=== PATIENT | male | born 1960 ===

== ENCOUNTER 2023-01-29 08:45 | Outpatient (AMB) | payer MEDICARE, SELFPAY ==
--- NOTE | 2023-01-29 09:11 | MHC.PC.OV ---
Vital Signs 01/29/23 09:14 Height 5 ft 11 in Weight 191 lb BMI 26.6 BP 120/66 Blood Pressure Location Lt brachial Position Sitting Intake Visit Reasons: Est care Intake Note: Pt is here today as a New Patient to est care Allergies No Known Allergies Allergy (Verified 02/03/23 16:40) Medication List - Last Reconciled 02/03/23 by ISAI Chavarria atorvastatin 40 mg PO DAILY empagliflozin (Jardiance) 10 mg PO DAILY folic acid 1 mg PO DAILY metoprolol tartrate 50 mg PO BID pantoprazole 40 mg PO DAILY sacubitril-valsartan 24-26 mg (Entresto) 1 tab PO BID Tobacco use date assessed: 01/29/23 HPI HPI Comments History of Present Illness Details Patient is a 62-year-old male in today to establish care. Patient last had establish medical providers from the [facility]. He has a past medical history significant for congestive heart failure, major depression, hypertension, and diabetes type 2. He has a surgical history of pulmonary pleural effusion requiring thoracentesis. He has had 2 Moderna COVID-19 immunization shots. He states he would like to get the new COVID booster and will make an appointment to do so. He received the influenza immunization in office today. His A1c in office today is 6.3. His last colonoscopy he believes was around 6-7 years prior to this appointment, he will reach out to previous provider to have them send us information on his last colonoscopy, will schedule based on recommendation from lip cutter and scorer. At the appointment today he has a chief complaint of intermittent right knee pain. He states that when he tries to walk up stairs he notices a lot of cracking in his knee. States that it has gotten progressively worse over the past couple years. Occasionally uses [id number] Motrin with some relief. Denies having any tingling or numbness. He also states that he gets unilateral left-sided headache 1-2 times per week, which responds well to Motrin. Denies any vision changes. States that he has never had history of headaches before. [facility] Medical History (Updated 02/03/23 @ 16:44 by ISAI Chavarria) Congestive heart failure Hyperlipidemia Surgical History (Updated 01/29/23 @ 10:02 by Ervin A Susu, MEASUREMENT AND SENSING TECHNICIAN) History of thoracentesis Social History (Updated 01/28/23 @ 14:48 by Amber To CMA) Patient Tobacco Use Status: Former Tobacco user e-Cigarette/Vaping Use: Never Used service: No Current occupational status: retired Cognitive needs: No Hearing needs: No Vision needs: Yes Questionnaire PHQ-9 Over the last 2 weeks, how often have you been bothered by any of the following problems? 1. Little interest or pleasure in doing things: several days 2. Feeling down, depressed, or hopeless: more than half the days 3. Trouble falling or staying asleep, or sleeping too much: more than half the days 4. Feeling tired or having little energy: not at all 5. Poor appetite or overeating: more than half the days 6. Feeling bad about yourself - or that you are a failure or have let yourself or your family down: several days 7. Trouble concentrating on things, such as reading the newspaper or watching television: not at all 8. Moving or speaking so slowly that other people could have noticed. Or the opposite - being so fidgety or restless that you have been moving around a lot more than usual: not at all 9. Thoughts that you would be better off or of hurting yourself in some way: not at all Total score: 8 Depression Screening Interpretation: Negative Depression Screening Done: Yes 73179 - PHQ-9 Billing: Yes Source: Developed by Drs. Romaine Ernst, Bibi Fitzpatrick, Baltazar Law and colleagues, with an educational alexandro from [email or web address]. Thrive Questionnaire Date Thrive assessed: 01/29/23 I am a: Patient What is your living situation today?: I have a steady place to live Within the past 12 months, did the food you bought not last and you didn't have the money to get more?: Often true Within the past 12 months, did you worry whether your food would run out before you got money to buy more?: Often true Do you have trouble paying for medicines?: Yes Do you have trouble getting transportation to medical appointments?: Yes Do you have trouble paying your heating and electricity bill?: Yes Do you have trouble taking care of your child, family member or friend?: No Do you have trouble with day-to-day activities such as bathing, preparing meals, shopping, managing finances, etc.?: Yes Are you currently unemployed and looking for a job?: No Are you interested in more education?: No AUDIT C Alcohol Use Questionnaire (AUDIT-C) 1. How often do you have a drink containing alcohol?: Never Total Score: 0 ROLANDO-7 AMB Questionnaire ROLANDO-7 Date ROLANDO - 7 assessed: 01/29/23 Feeling nervous, anxious, or on edge: 2 = More than half the days Not being able to stop or control worryin = Not at all Worrying too much about different things: 1 = Several days Trouble relaxin = Not at all Being so restless that it is hard to sit still: 0 = Not at all Becoming easily annoyed or irritable: 1 = Several days Feeling afraid as if something awful might happen: 2 = More than half the days Total ROLANDO-7 score (0-4 normal; 5-9 mild; 10-14 moderate; 15-21 severe): 6 Source: Developed by Drs. Romaine Ernst, Bibi Fitzpatrick, Baltazar Law and colleagues, with an educational alexandro from [email or web address]. ROLANDO-7 Assessment Billing ROLANDO-7 Assessment Tool: ROLANDO-7 Assessment 94408 Review of Systems Const All systems reviewed & are unremarkable except as noted in HPI and below Reports headache(s) Eyes Denies blurry vision and Denies change in vision ENT Denies dizziness, Denies otalgia, Denies facial pain and Reports headache(s) Card Denies chest pain and Denies dyspnea on exertion Resp Denies cough, Denies dyspnea on exertion and Denies wheezing GI Reports heartburn, Denies diarrhea, Denies nausea and Denies vomiting Musc Reports as per HPI and Denies tingling Neuro Denies dizziness, Reports headache(s) and Denies tingling Aller/Immun Denies wheezing Physical exam (Primary Care) Vital Signs: Last Vital Signs BP 120/66 01/29/23 09:14 Care Plan Goal for BP management: Blood pressure is 120/66, pulse is 66, O2 sat 99%. Vital signs stable BMI result Body Mass Index 26.6 Tobacco/Smoking Status: Tobacco use Status Tobacco use date assessed 01/29/23 01/29/23 09:33 Patient Tobacco Use Status Former Tobacco user 01/29/23 09:12 e-Cigarette/Vaping Use Never Used 01/29/23 09:33 PHQ-9: PHQ-9 Score PHQ-9: Total score 8 02/03/23 16:39 Depression Screening Interpretation: Negative Thrive Assessment: Date of Thrive Assessment Date Thrive assessed 01/29/23 01/29/23 10:08 Const Other: Appearance: Alert.? Oriented X3.? No acute distress.? Head: Normocephalic, atraumatic, no step-offs or deformities Eyes: Pupils equal, round and reactive to light.? ENT: Pharynx normal.?TM intact and pearly rose. Septum midline. Neck: Normal inspection.? Neck supple.? CVS: Normal heart rate and rhythm.? Pulses normal.?S1 and S2. Respiratory: No respiratory distress.? Breath sounds normal.? Abdomen: Soft and nontender.?Bowel sounds active. Skin: Skin warm and dry.? Normal skin color.? Normal skin turgor.? Extremities: No lower extremity edema.? No calf ttp. 5/5 strength to bilateral upper and lower extremities. Patient has cracking and crepitus of the right knee. Full range of motion to flexion and extension. Back: No midline tenderness, no C-spine tenderness, full range of motion, no CVA tenderness bilaterally Neuro: Oriented X 3.? No motor deficit.? No sensory deficit. CN 2-12 intact General: cooperative and no acute distress Office Procedures Flu Questionnaire Does the patient have a severe egg allergy?: No Does the patient have severe life threatening allergies?: No Does the patient have a fever or illness today?: No Has the patient ever had Guillain-[place] Syndrome?: No Has the patient ever had any past reaction to a flu shot?: No Results AMB Hemoglobin A1c AMB Hemoglobin A1c 6.3 % Last Edit by Amber To CMA on 01/29/23 09:34 Immunizations flu vacc [id number] 6mos up(PF) 60 mcg(15 mcgx4)/0.5 mL IM syringe Performing Provider: ISAI Chavarria Performing Location: [facility] Administered by: Amber To CMA on 01/29/23 10:05 Dose Route Admin Location Dispensed Lot Number Expiration Date NDC [place] 0.5 mL IM Left Deltoid 0.5 mL [id number] 08/24/23 96129-595-23 [employer] VIS Given Date VIS Provided VIS Publication Date 01/29/23 Single Vaccine 20 Eligibility Eligibility Date Funding Source Not [facility] Eligible 01/29/23 Private Results Reviewed Results Reviewed: Laboratory Last Values Hgb A1c (Clinic) 6.3 % (4.0-6.0) H 01/29/23 09:33 Results reviewed with patient. Assessment and Plan Assessment & Plan (1) Diabetes type 2, controlled: Comment: Patient had A1c drawn in office. He should continue to watch his diet which he has been doing a good job of, and continue to take his medication as directed. He should continue to take blood sugar levels at home. He will receive a referral to Ophthalmology and Podiatry. Code(s): E11.9 - Type 2 diabetes mellitus without complications Qualifiers: Diabetes mellitus complication status: without complication Diabetes mellitus intermediate frame tender insulin use: without retirement use Qualified Code(s): E11.9 - Type 2 diabetes mellitus without complications (2) Frequent headaches: Comment: Patient has been educated to make sure he stays water. Due to the frequency of headache 3 to 4 times a week, will order CT scan. Patient has been educated on signs of worsening symptoms, when to report back to the office or when to present to the emergency room. Code(s): R51.9 - Headache, unspecified (3) Right knee pain: Comment: Patient has cracking and crepitus on flexion-extension. In addition he report intermittent right knee pain, especially walking up and down stairs. Will order x-ray of right knee. Will follow-up patient with results. Patient has been educated that he can use supportive device over his knee, and to give it rest. Code(s): M25.561 - Pain in right knee Qualifiers: Chronicity: acute Qualified Code(s): M25.561 - Pain in right knee Orders: Orders CT head/brain wo IV con 01/29/23 R51.9 - Headache, unspecified Comprehensive Met. Panel 01/30/23 E11.9 - Type 2 diabetes mellitus without complications Complete Blood Count Auto Diff 01/30/23 E11.9 - Type 2 diabetes mellitus without complications Microalbumin 24 hr Urine 02/05/23 E11.9 - Type 2 diabetes mellitus without complications AMB Hemoglobin A1c 01/29/23 Z13.9 - Encounter for screening, unspecified Influenza [id number] Immunization 01/29/23 Z23 - Encounter for immunization XR knee LT 2V 01/29/23 M25.561 - Pain in right knee Lipid Panel 01/30/23 E78.5 - Hyperlipidemia, unspecified PSA,Total (Free>4and<10) 01/30/23 E78.5 - Hyperlipidemia, unspecified TSH reflex Free T4 01/30/23 E11.9 - Type 2 diabetes mellitus without complications UA CC w/rflx Micro + Cult 01/30/23 E11.9 - Type 2 diabetes mellitus without complications Referrals Cardiology Referral I50.9 - Heart failure, unspecified Podiatry Referral E11.9 - Type 2 diabetes mellitus without complications Ophthalmology Referral E11.9 - Type 2 diabetes mellitus without complications Coding Level of Care Code New Pt Level 4 (68480) Diagnoses Controlled type 2 diabetes mellitus without complication, without long-term current use of insulin E11.9 Diabetes mellitus complication status: without complication Diabetes mellitus retirement insulin use: without retirement use Frequent headaches R51.9 Acute pain of right knee M25.561 Chronicity: acute Additional Codes ROLANDO-7 Assessment Billing - ROLANDO-7 Assessment Tool: ROLANDO-7 Assessment 21796 ([id number]) Time Spent (min) 30
[2023-01-29 09:14] VITALS: BP 120/66; BMI 26.6
== END 2023-01-29 10:45 | disposition home or self-care (01) ==
PROVIDERS: PCP Nurse Practitioner Primary Care; Visit Provider Nurse Practitioner Primary Care
DX: Z23 Encounter for immunization (principal); E11.9 Type 2 diabetes mellitus without complications
CPT/HCPCS: 83036; 90471; 90686; 99204

== ENCOUNTER 2023-01-30 08:10 | Outpatient (REF) | payer MEDICARE, SELFPAY ==
[2023-01-30 11:20] LABS: MANUAL DIFF FLAG NO
[2023-01-30 11:29] LABS: Appearance Urine Clear; Color Urine Yellow; Glucose Urine UA >=1000 mg/dL (Negative); Leukocyte Esterase Urine Negative (Negative); Nitrite Urine Negative (Negative); Specific Gravity - Urine >= 1.030 (1.005-1.025); UMIC TRIGGER UACC YES; Urine Blood Negative (Negative); Urine Ketones Negative (Negative); Urine Protein Negative (Neg-Trace)
[2023-01-30 11:33] LABS: Bacteria Urine None Seen (None Seen); Hyaline Casts Urine 0-2 /LPF (0-2); RBC Urine 0-2 /HPF (0-2); Squamous Epithelial Cell Urine 0-2 /HPF (0-2); WBC Urine 0-5 /HPF (0-5)
[2023-01-30 11:41] LABS: Basophils Percent Auto 0.5 % (0-2); Eosinophils Absolute Auto 0.1 X10*3/uL (0.0-0.4); Eosinophils Percent Auto 1.8 % (0-4); Hemoglobin 14.6 g/dl (14.0-18.0); Imm Gran Abs Auto 0.01 X10*3/uL (0.00-0.03); Imm Gran Pct Auto 0.3 % (0.0-0.4); Lymphocytes Absolute Auto 1.5 X10*3/uL (1.2-4.9); Lymphocytes Percent Auto 37.8 % (20-40); Mean Corpuscular HGB Conc 31.7 g/dl (31.0-36.0); Mean Corpuscular Hemoglobin 30.3 pg (27.0-33.0); Mean Corpuscular Volume 95.4 fL (80.0-98.0); Mean Platelet Volume 10.1 fL (9.4-12.4); Monocytes Absolute Auto 0.3 X10*3/uL (0.1-1.2); Neutrophils Percent Auto 52.6 % (45-73); Platelet Count 235 X10*3/uL (160-400); Red Blood Count 4.82 X10*6/uL (4.60-5.80); Red Cell Distribution Width 13.3 % (11.0-16.0); White Blood Count 3.8 X10*3/uL (4.8-10.8)
[2023-01-30 12:01] LABS: Alanine Aminotransferase 11 U/L (0-40); Albumin Level 4.2 g/dL (3.5-5.0); Alkaline Phosphatase 77 U/L (39-117); Anion Gap 10 (12-20); Aspartate Amino Transferase 15 U/L (5-37); Bilirubin Total 0.6 mg/dL (0.0-1.0); Blood Urea Nitrogen 12 mg/dL (9-16); Calcium 9.4 mg/dL (8.4-10.2); Carbon Dioxide 31 mmol/L (22-29); Chloride 105 mmol/L (96-108); Cholesterol 119 mg/dL (<200); Estimated Glomerular Filt Rate > 60; Glucose Random 122 mg/dL (60-115); HDL Cholesterol 49 mg/dL (>40); LDL Cholesterol Calculated 51 mg/dL (<100); Potassium 4.2 mmol/L (3.3-5.1); Sodium 142 mmol/L (135-145); Total Protein 6.8 g/dL (6.5-8.0); Triglycerides 98 mg/dL (<150)
[2023-01-30 12:06] LABS: TSH reflex Free T4 1.26 uIU/mL (0.32-4.0)
== END 2023-01-30 08:11 | disposition home or self-care (01) ==
LOC: HO.HMGCLDS 08:10
PROVIDERS: PCP Nurse Practitioner Primary Care; Visit Provider Nurse Practitioner Primary Care
DX: E11.9 Type 2 diabetes mellitus without complications (principal); E78.5 Hyperlipidemia, unspecified; Z12.5 Encounter for screening for malignant neoplasm of prostate
CPT/HCPCS: 36415; 80053; 80061; 81001; 84153; 84443; 85025

== ENCOUNTER 2023-02-05 07:30 | Outpatient (REF) | payer MEDICARE, SELFPAY ==
[2023-02-05 12:16] LABS: Total Volume 24 Hour Urine 2900 mL
[2023-02-05 13:05] LABS: Microalbumin 24 Hour Urine < 5.0 mg/L
== END 2023-02-05 07:31 | disposition home or self-care (01) ==
LOC: HO.HMGCLNP 07:30
PROVIDERS: PCP Nurse Practitioner Primary Care; Visit Provider Nurse Practitioner Primary Care
DX: E11.9 Type 2 diabetes mellitus without complications (principal)
CPT/HCPCS: 82043

== ENCOUNTER 2023-02-14 06:26 | Outpatient (REF) | payer MEDICARE, MEDICAID, SELFPAY ==
--- NOTE | ~2023-02-14 | CT_ITS ---
EXAMINATION: CT HEAD WITHOUT CONTRAST CLINICAL INFORMATION: Headache. COMPARISON: None. TECHNIQUE: Contiguous axial imaging was performed from the skullbase to vertex without intravenous administration of contrast. This CT examination was performed using dose optimization techniques as appropriate, variously including the following: *Automated exposure control *Adjustment of mA and/or kV according to patient size (this includes techniques or standardized protocols for targeted exams where dose is matched to indication/reason for exam; i.e. extremities or head) *Use of iterative reconstruction technique DLP: 824 mGy-cm. FINDINGS: There is no evidence of acute intracranial hemorrhage or territorial infarction. No abnormal mass effect or midline shift is seen. Ryder to white matter differentiation is well preserved. No extra-axial fluid collections are identified. The ventricles are normal. No abnormal attenuation is visible in the brain parenchyma. The osseous structures and soft tissues are normal. There is a mild amount of fluid in the dependent right mastoid air cells. The right mastoid bone is also less well pneumatized compared to the left side. The left mastoid air cells and visualized portions of the paranasal sinuses are well aerated. Small subchondral cyst noted in the condylar head of the left the temporomandibular joint. CT/CT head/brain wo IV con IMPRESSION: No acute intracranial pathology. Normal CT scan of the head. Mild right mastoid effusion.
== END 2023-02-14 06:27 | disposition home or self-care (01) ==
LOC: HO.CT 06:26
PROVIDERS: PCP Nurse Practitioner Primary Care; Visit Provider Nurse Practitioner Primary Care
DX: R51.9 Headache, unspecified (principal); M25.561 Pain in right knee
CPT/HCPCS: 70450; 73560

== ENCOUNTER 2023-04-29 07:38 | Outpatient (AMB) | payer OTHER, SELFPAY ==
--- NOTE | 2023-04-29 08:28 | MHC.OFFVIS ---
Intake Vital Signs 04/29/23 08:30 Height 5 ft 11 in Weight 196 lb 3.382 oz BMI 27.4 BP 136/76 Blood Pressure Location Lt brachial Position Sitting Pulse 63 Intake Visit Reasons: [employer]/Susu/Heart failure Intake Note: NPV w/ EKG Director Of Revenue Required: Yes Director Of Revenue Language: Teletypist Name: Sammy [id number] Accompanied by: Self / Same As Patient Allergies No Known Allergies Allergy (Verified 04/29/23 08:30) Medication List - Last Reconciled 04/29/23 by Aramis Pedraza MD atorvastatin 40 mg PO DAILY empagliflozin (Jardiance) 10 mg PO DAILY folic acid 1 mg PO DAILY metoprolol tartrate 50 mg PO BID pantoprazole 40 mg PO DAILY sacubitril-valsartan 24-26 mg (Entresto) 1 tab PO BID HPI HPI Comments History of Present Illness Details This is a cardiology consultation regarding congestive heart failure. It appears that patient might have seen a special agent in charge in [place] but details not entirely clear. He does not know too much. It seems that he has had a pleural effusion tapped many years ago. Otherwise, he denies any history of coronary disease myocardial infarction or PCI in the past. He states he has had a lot of alcohol in the past but not recently. At the current time, denies any symptoms like exertional chest pains or exertional shortness of breath. No significant leg swelling. [facility] Medical History (Updated 02/03/23 @ 16:44 by ISAI Chavarria) Congestive heart failure Hyperlipidemia Surgical History History of thoracentesis Family History (Updated 04/29/23 @ 08:31 by Wendi Cloud) Mother Heart problem Social History (Updated 01/28/23 @ 14:48 by Amber To [facility]) Patient Tobacco Use Status: Former Tobacco user e-Cigarette/Vaping Use: Never Used service: No Current occupational status: retired Cognitive needs: No Hearing needs: No Vision needs: Yes Review of Systems Const Denies chills, Denies daytime sleepiness, Denies fatigue, Denies fever(s), Denies frequent falls, Denies night sweats, Denies snoring, Denies weakness, Denies weight gain and Denies weight loss Eyes Denies loss of vision ENT Denies dizziness and Denies hearing loss Card Denies chest pain, Denies chest pain with activity, Denies syncope, Denies rapid heart rate, Denies edema, Denies claudication, Denies leg edema, Denies lightheadedness, Denies palpitations, Denies dyspnea, Denies dyspnea on exertion and Denies orthopnea Resp Denies cough, Denies excessive phlegm production, Denies dyspnea, Denies dyspnea on exertion, Denies snoring and Denies wheezing GI Denies abdominal pain, Denies hematochezia, Denies change in bowel habits, Denies change in stool character, Denies heartburn, Denies nausea and Denies vomiting Denies hematuria, Denies dysuria and Denies urinary frequency Musc Denies arthralgias, Denies muscle weakness, Denies numbness and Denies tingling Skin/Breast Denies nail changes and Denies rash Neuro Denies Abnormal speech present, Denies dizziness, Denies syncope, Denies frequent falls, Denies loss of vision, Denies memory loss, Denies numbness, Denies tingling and Denies weakness Psych Denies depression and Denies memory loss Endo Denies fatigue and Denies palpitations Aller/Immun Denies wheezing Physical Exam Vital Signs: Last Vital Signs Pulse 63 04/29/23 08:30 BP 136/76 04/29/23 08:30 BMI result Body Mass Index 27.4 Const General: comfortable and no acute distress Orientation/consciousness: patient oriented x3 HEENT Other: Unremarkable Head: Yes normal to inspection Neck Neck: Yes normal visual inspection Chest Chest palpation & inspection: normal inspection of the chest Resp Auscultation: clear to auscultation bilaterally Cardio Palpation: normal PMI Heart sounds: S1 normal heart sound present, S2 normal heart sound present, no gallops, no murmurs and no rubs GI Palpation (GI): Soft to palpation Back/Spine/Pelvis Other: unremarkable Skin General skin exam: no rashes or lesions noted Neuro General: patient oriented x3 Speech: No Abnormal speech present Extrem General: Yes normal to inspection Psych Mental Status: mental status grossly normal Office Procedures EKG Details: EKG with sinus rhythm at 63/Min; can not exclude old septal infarct; PVCs. [id number], Complete Assessment & Plan Assessment & Plan (1) Congestive heart failure: Code(s): I50.9 - Heart failure, unspecified Plan History of congestive heart failure but no further information. He seems to be on reasonable regimen including beta-blockers, Entresto, Jardiance. Will get an echocardiogram for cardiac function assessment. Need to get records from [place] from prior cardiac testing/outpatient visits. Follow-up after the above. Orders: Orders CA echo transthoracic complete Today I50.9 - Heart failure, unspecified Coding Level of Care Code New Pt Level 3 (51270) Diagnoses Congestive heart failure I50.9 CPT Codes EKG - CPT: 78940-[id number], Complete ([id number])
[2023-04-29 08:30] VITALS: BP 136/76; PULSE 63; BMI 27.4
== END 2023-04-29 09:02 | disposition home or self-care (01) ==
PROVIDERS: PCP Nurse Practitioner Primary Care; Visit Provider Internal Medicine
DX: I50.9 Heart failure, unspecified (principal)
CPT/HCPCS: 93010; 99203

== ENCOUNTER → 2023-04-29 07:38 | Outpatient (BNVA) | payer OTHER, SELFPAY | PROVIDERS: PCP Nurse Practitioner Primary Care; Visit Provider Internal Medicine | DX: I50.9 Heart failure, unspecified (principal) | CPT/HCPCS: 93005; 99202 ==

== ENCOUNTER → 2023-05-27 07:44 | Outpatient (REF) | payer OTHER, SELFPAY ==
--- NOTE | 2023-05-27 07:46 | CA_ITS ---
Transthoracic Echocardiogram Patient (Last, First, Middle): D[address]rell [address], Gender: Male Date of : 1960 Age: 63 Procedure Date: 05/27/2023 Procedure Type: Transthoracic Echocardiogram Location: OP Height: 180.34 cm Weight: 85.28 kg BSA: 2.05 m2 Heart Rate: bpm BP: 128 / 74 mmHg Stoneworker: RACHNA Referring MD: Aramis Pedraza MD Clinical Research Nurse Coordinator: Te Linares MD Symptoms: I50.9 - Heart failure, unspecified Study Quality: Adequate ECG Rhythm: Sinus Conclusions: - 1. Low normal LV ejection fraction 50-55% with impaired relaxation filling pattern with underlying regional wall motion abnormality consistent with coronary artery disease 2. Normal cardiac valvular Doppler 3. Normal RV systolic pressure 4. Mildly dilated ascending aorta 5. No gross pericardial effusion Findings Left Ventricle Mildly increased left ventricular cavity size. There is normal left ventricular wall thickness. The left ventricular systolic function is low normal. The visually estimated ejection fraction is between 50-55%. Spectral Doppler is indicative of an impaired relaxation filling pattern. E/E prime ratio is between 8 and 15 consistent with indeterminate filling pressures. Wall Motion Rest Echo Findings The mid inferior, mid inferoseptal, and basal inferolateral segments are hypokinetic. The basal inferior and basal inferoseptal segments are akinetic. All other scored wall segments showed normal motion. Right Ventricle Normal right ventricular cavity size and systolic function. Atria The left atrium is normal in size. The right atrium is normal in size. Aortic Valve Normal aortic valve structure and function. There is no aortic valve stenosis. There is no aortic valve regurgitation. Mitral Valve Normal mitral valve structure and function. There is trace mitral valve regurgitation. There is no mitral valve stenosis. Pulmonic Valve There is trace pulmonic valve regurgitation. Tricuspid Valve Normal tricuspid valve structure. There is trace tricuspid valve regurgitation. The right ventricular systolic pressure is normal. Normal right atrial pressure. There is no evidence of pulmonary hypertension. Great Vessels The pulmonary artery was not well visualized. There is mild dilatation of the ascending aorta measuring 3.70 cm. Venous The inferior vena cava is normal in size and collapses greater than 50% with inspiration. Pericardium/Pleural There is no evidence of pericardial effusion. Prior Study Comparison No prior study available for comparison. Measurements 2D Linear Measurements IVSd: 0.84 0.6-0.9/0.6-1.0 cm LVIDd: 5.69 3.9-5.3/4.2-5.9 cm LVIDd Index: 2.78 2.4-3.2/2.2-3.1 cm/m2 LVIDs: 4.21 2.0-3.6 cm LVPWd: 0.71 0.7-1.1 cm LA Diam: 3.00 2.7-3.8/3.0-4.0 cm LAIDs Index: 1.46 1.5-2.3 cm/m2 LV Mass: 202.93 67-162/88-224 g LV Mass Index: 98.99 43-95/49-115 g/m2 LVOT Diam: 2.50 3.0+(-)1.3 cm 2D Systolic Function EF 4C: 50.10 >55% EF 2C: 56.50 >55% EF BiP: 51.50 >55% Mitral Valve MV Pk E: 0.42 MV PK A: 0.39 MV Decel Time: 327.00 E/A: 1.10 E'Lateral: 8.59 E'Medial: 6.20 E/E' Med: 6.80 E/E' Lat: 4.90 PHT: 96.00 MVA PHT: 2.29 Decel [place]: 1.30 Aortic Valve AoV Pk Glenn: 0.92 AoV Mn Glenn: 0.67 AoV VTI: 0.22 AoV Pk Grad: 3.00 Aov Mn Grad: 2.00 JUDAH Cont.VTI: 3.57 LVOT LVOT Pk Glenn: 0.72 LVOT Mn Glenn: 0.45 LVOT VTI: 0.16 LVOT Pk Grad: 2.00 LVOT Mn Grad: 1.00 LVOT Diam: 2.50 LVOT Area: 4.91 Diastolic Function MV Pk E: 0.42 MV Pk A: 0.39 E/A: 1.10 E'Medial: 6.20 E/E' Med: 6.80 E' Laterial: 8.59 E/E' Lat: 4.90 Right Ventricle TAPSE (mm): 21.70 TVS' Glenn: 13.10 Tricuspid Valve TR Pk Glenn: 1.98 TR Pk Grad: 16.00 RA Press: 3.00 RVSP: 19.00 Great Vessels Aorta Sinus of Valsalva: 4.32 2.0-3.[address] [place]: 3.52 1.7-3.4 cm Ao Asc: 3.70 2.1-3.4 cm Updated in Other Vendor System with Status of Final Te Linares MD electronically signed on 05/28/2023 3:51:19 PM with status of Final
== END ==
LOC: HO.CARD 07:44
PROVIDERS: PCP Nurse Practitioner Family; Visit Provider Internal Medicine
DX: I50.9 Heart failure, unspecified (principal)
CPT/HCPCS: 93306

== ENCOUNTER → 2023-05-27 07:46 | Outpatient (BNV) | payer OTHER, SELFPAY | PROVIDERS: PCP Nurse Practitioner Family; Visit Provider Internal Medicine Cardiovascular Disease | DX: I50.22 Chronic systolic (congestive) heart failure (principal) | CPT/HCPCS: 93306 ==

== ENCOUNTER 2023-06-02 13:36 | Outpatient (AMB) | payer OTHER, SELFPAY ==
--- NOTE | 2023-06-02 13:50 | MHC.PC.OV ---
Vital Signs 06/02/23 13:51 Height 5 ft 11 in Weight 198 lb 2 oz BMI 27.6 BP 114/72 Blood Pressure Location Rt brachial Position Sitting Pulse 70 Pulse Source Pulse Oximeter Pulse Oximetry (%) 98 Oxygen Delivery Method Room Air Intake Visit Reasons: depression, insomnia Intake Note: Pt is here for insomnia and depression Allergies No Known Allergies Allergy (Verified 06/02/23 14:23) Medication List - Last Reconciled 06/02/23 by ISAI Chavarria atorvastatin 40 mg PO DAILY empagliflozin (Jardiance) 10 mg PO DAILY folic acid 1 mg PO DAILY metoprolol tartrate 50 mg PO BID pantoprazole 40 mg PO DAILY sacubitril-valsartan 24-26 mg (Entresto) 1 tab PO BID Tobacco use date assessed: 06/02/23 Dental Screening Dental Screen Date: 06/02/23 Did you have a dental visit in the last 12 months?: No Did you have a dental problem in the last 6 months where you did not have access to dental care?: No Was dental information given to patient?: Patient has dentist HPI HPI Comments History of Present Illness Details Patient is a 63-year-old male here for diabetic visit. Patient in office A1c is 6.8. Patient does not want to increase medication dosage at this time instead would like to try to improve diet and exercise. Patient given information to make appointment for podiatry in for Ophthalmology as he is due for those. Patient states he is having increasing anxiety insomnia over the past several months due to life stressors. He is interested in starting medication for this, will start him on hydroxyzine to be taken p.r.n. at night. Patient is also meeting with community navigator to assist in finding therapy and psychiatrist. Patient denies SI/HI. Patient has history of chronic GERD he has been taking pantoprazole sodium for this with mild effect. Patient has been educated on foods to avoid, to avoid eating at least 3 hours before dinner, to sleep with his head of his bed elevated. Patient denies blood in stools, constipation, or diarrhea. Will refer to GI due to increased bloating and chronic nature of patient's GERD symptoms with PPI use. Patient has complained of right foot pain over his 1st metatarsal joint, found to be bunion. Patient will be given diclofenac gel, has referral to Podiatry. Also been educated he can use inserts in his shoes to help with the pain. [facility] Medical History Congestive heart failure Hyperlipidemia Surgical History History of thoracentesis Family History Mother Heart problem Social History Housing: Apartment Patient Tobacco Use Status: Former Tobacco user e-Cigarette/Vaping Use: Never Used service: No Current occupational status: retired Cognitive needs: No Hearing needs: No Vision needs: Yes Questionnaire Thrive Questionnaire Date Thrive assessed: 01/29/23 ROLANDO-7 AMB Questionnaire ROLANDO-7 Date ROLANDO - 7 assessed: 06/02/23 Feeling nervous, anxious, or on edge: 2 = More than half the days Not being able to stop or control worryin = More than half the days Worrying too much about different things: 3 = Nearly every day Trouble relaxin = More than half the days Being so restless that it is hard to sit still: 2 = More than half the days Becoming easily annoyed or irritable: 2 = More than half the days Feeling afraid as if something awful might happen: 2 = More than half the days Total ROLANDO-7 score (0-4 normal; 5-9 mild; 10-14 moderate; 15-21 severe): 15 Source: Developed by Drs. Romaine Ernst, Bibi Fitzpatrick, Baltazar Law and colleagues, with an educational alexandro from [employer]. ROLANDO-7 Assessment Billing ROLANDO-7 Assessment Tool: ROLANDO-7 Assessment 05261 Review of Systems Const Details: Constitutional : No Weight loss, No Fever, No Chills, No Fatigue, No Malaise ENT/Mouth : No sore throat, No Rhinorrhea Eyes: No Eye Pain, No Swelling, No Redness Cardiovascular : No Chest Pain, No SOB, No Dyspnea on Exertion, No Orthopnea, No Edema, No Palpitations Respiratory : No Cough, No Sputum, No Wheezing Gastrointestinal : No Nausea, No Vomiting, No Diarrhea, No Constipation, No abdominal Pain, No Hematochezia, No Melena, Admits distention and Reflux. Genitourinary : No Dysuria, No Urinary Frequency, No Hematuria, Musculoskeletal : Admits right foot pain at first joint. Skin : No Skin Lesions, No rash Neuro : No Weakness, No Numbness, No Dizziness, No Headache Psych : Admits some Anxiety/Panic, No Depression, Denies SI/HI. Heme/Lymph: No Bruising, No Bleeding,No Lymphadenopathy Endocrine : No Polyuria, No Polydipsia All other systems reviewed and are negative Physical exam (Primary Care) Vital Signs: Last Vital Signs Pulse 70 06/02/23 13:51 BP 114/72 06/02/23 13:51 Pulse Ox 98 06/02/23 13:51 Oxygen Delivery Method Room Air 06/02/23 13:51 Care Plan Goal for BP management: Vital signs reviewed stable. BMI result Body Mass Index 27.6 Tobacco/Smoking Status: Tobacco use Status Tobacco use date assessed 06/02/23 06/02/23 13:56 Patient Tobacco Use Status Former Tobacco user 06/02/23 13:50 e-Cigarette/Vaping Use Never Used 06/02/23 13:50 Thrive Assessment: Date of Thrive Assessment Date Thrive assessed 01/29/23 06/02/23 13:50 Const Other: Appearance: Alert.? Oriented X3.? No acute distress.? Head: Normocephalic, atraumatic, Eyes: Pupils equal, round and reactive to light.? ENT: Pharynx normal.? Neck: Normal inspection.? Neck supple.? CVS: Normal heart rate and rhythm.? Pulses normal.? Respiratory: No respiratory distress.? Breath sounds normal.? Abdomen: +distention. +hyperactive bowel sounds. Skin: Skin warm and dry.? Normal skin color.? Normal skin turgor.? Extremities: +right foot bunion. Back: No midline tenderness, no C-spine tenderness, full range of motion, no CVA tenderness bilaterally Neuro: Oriented X 3.? No motor deficit.? No sensory deficit. CN 2-12 intact Results AMB Hemoglobin A1c AMB Hemoglobin A1c 6.8 % Last Edit by Conchita Valero CMA on 06/02/23 14:13 Results Reviewed Results Reviewed: Laboratory Last Values Hgb A1c (Clinic) 6.8 % (4.0-6.0) H 06/02/23 14:01 Assessment and Plan Assessment & Plan (1) Diabetes type 2, controlled: Comment: Patient had A1c drawn in office. He should continue to watch his diet which he has been doing a good job of, and continue to take his medication as directed. He should continue to take blood sugar levels at home. He will receive a referral to Ophthalmology and Podiatry. Code(s): E11.9 - Type 2 diabetes mellitus without complications Qualifiers: Diabetes mellitus terminal gauger supervisor insulin use: without skilled nursing use Diabetes mellitus complication status: without complication Qualified Code(s): E11.9 - Type 2 diabetes mellitus without complications (2) GERD (gastroesophageal reflux disease): Comment: Patient is getting mild effect from pantoprazole sodium. Patient is also having increased bloating. Will give simethicone, will also give patient referral to GI. Code(s): K21.9 - Gastro-esophageal reflux disease without esophagitis Qualifiers: Esophagitis presence: esophagitis presence not specified Qualified Code(s): K21.9 - Gastro-esophageal reflux disease without esophagitis (3) Bunion, right foot: Comment: Patient given diclofenac gel, also referral to Podiatry. Has been educated to use inserts for his feet Code(s): M21.611 - Bunion of right foot Plan: Follow-up in 3 month Plan Take your medications as prescribed. If you were prescribed antibiotics today, it is important that you take your medication to their entirety, do not skip any doses, do not finish them early. Follow-up with your primary care provider this week. Return to the emergency department with new or worsening symptoms. Such as fevers, chills, chest pain, shortness of breath, nausea, vomiting, dizziness, headache, vision changes, lethargy In case of emergency call 911 Orders: Orders AMB Hemoglobin A1c Today E11.9 - Type 2 diabetes mellitus without complications Referrals Gastroenterology Referral K21.9 - Gastro-esophageal reflux disease without esophagitis, R14.0 - Abdominal distension (gaseous) Medications: New blood pressure test kit-large As directed 1 ea 0RF diclofenac sodium 1% apply to single elbow, wrist or hand; for hand includes palm/fingers/back of hand 2 grams topical QID 100 grams 0RF hydroxyzine HCl 25 mg PO BEDTIME PRN 30 tabs 0RF anxiety blood-glucose meter (FreeStyle Lite Meter kit) As directed 1 ea 0RF blood sugar diagnostic (FreeStyle Lite Strips) As directed 100 ea 0RF lancets (FreeStyle Lancets) As directed 100 ea 0RF simethicone (Gas Relief (simethicone)) 180 mg PO DAILY PRN 30 caps 0RF abdominal distention Coding Level of Care Code Est Pt Level 4 (81249) Diagnoses Controlled type 2 diabetes mellitus without complication, without long-term current use of insulin E11.9 Diabetes mellitus terminal gauger supervisor insulin use: without terminal gauger supervisor use Diabetes mellitus complication status: without complication Gastroesophageal reflux disease, unspecified whether esophagitis present K21.9 Esophagitis presence: esophagitis presence not specified Bunion, right foot M21.611 Additional Codes ROLANDO-7 Assessment Billing - ROLANDO-7 Assessment Tool: ROLANDO-7 Assessment 71348 ([id number]) Time Spent (min) 32
[2023-06-02 13:51] VITALS: BP 114/72; PULSE 70; O2SAT 98; BMI 27.6
== END 2023-06-02 15:11 | disposition home or self-care (01) ==
PROVIDERS: PCP Nurse Practitioner Family; Visit Provider Nurse Practitioner Primary Care
DX: E11.9 Type 2 diabetes mellitus without complications (principal)
CPT/HCPCS: 83036; 99214

== ENCOUNTER 2023-07-10 10:37 | Outpatient (AMB) | payer OTHER, SELFPAY ==
--- NOTE | 2023-07-10 10:58 | MHC.PC.OV ---
Vital Signs 07/10/23 10:59 Height 5 ft 11 in Weight 195 lb BMI 27.2 BP 122/70 Blood Pressure Location Rt brachial Position Sitting Pulse 60 Pulse Source Pulse Oximeter Pulse Oximetry (%) 99 Intake Visit Reasons: follow up insomnia, depression Intake Note: pt is here for follow up on insomnia and depression Water Chemist Required: No Accompanied by: Self / Same As Patient Allergies metformin Adverse Reaction (Mild, Uncoded 07/10/23 11:26) Headache Medication List - Last Reconciled 07/10/23 by ISAI Chavarria atorvastatin 40 mg PO DAILY blood pressure test kit-large As directed blood sugar diagnostic (FreeStyle Lite Strips) Test blood sugar once a day blood-glucose meter (FreeStyle Lite Meter kit) As directed diclofenac sodium 1% 2 grams topical QID PRN empagliflozin (Jardiance) 10 mg PO DAILY folic acid 1 mg PO DAILY hydroxyzine HCl 25 mg PO BEDTIME PRN lancets (FreeStyle Lancets) Test blood sugar once a day metoprolol tartrate 50 mg PO BID pantoprazole 20 mg PO DAILY sacubitril-valsartan 24-26 mg (Entresto) 1 tab PO BID simethicone 180 mg PO DAILY PRN Tobacco use date assessed: 06/02/23 Dental Screening Dental Screen Date: 06/02/23 HPI HPI Comments History of Present Illness Details patient is a 63-year-old male in today for follow-up with anxiety and insomnia. At previous appointment he was started on hydroxyzine p.r.n. at night for the insomnia. He was also connected with community development specialist for therapy and psychiatry. He has his first appointment with therapy next week. Reports that he is getting sufficient sleep utilizing hydroxyzine prn. Patient will wait and see if therapy helps depressive symptoms during the day before he starts daily medication. Denies symptoms of SI/HI. [facility] Medical History Congestive heart failure Hyperlipidemia Surgical History History of thoracentesis Family History Mother Heart problem Social History Housing: Apartment Patient Tobacco Use Status: Former Tobacco user e-Cigarette/Vaping Use: Never Used service: No Current occupational status: retired Cognitive needs: No Hearing needs: No Vision needs: Yes Questionnaire PHQ-9 Over the last 2 weeks, how often have you been bothered by any of the following problems? 1. Little interest or pleasure in doing things: nearly every day 2. Feeling down, depressed, or hopeless: nearly every day 3. Trouble falling or staying asleep, or sleeping too much: nearly every day 4. Feeling tired or having little energy: nearly every day 5. Poor appetite or overeating: more than half the days 6. Feeling bad about yourself - or that you are a failure or have let yourself or your family down: not at all 7. Trouble concentrating on things, such as reading the newspaper or watching television: more than half the days 8. Moving or speaking so slowly that other people could have noticed. Or the opposite - being so fidgety or restless that you have been moving around a lot more than usual: not at all 9. Thoughts that you would be better off or of hurting yourself in some way: not at all Total score: 16 Depression Screening Interpretation: Positive Depression Screening Follow-up: In treatment (starting therapy next week. ) Depression Screening Done: Yes 06235 - PHQ-9 Billing: Yes Source: Developed by Drs. Romaine Ernst, Bibi Fitzpatrick, Baltazar Law and colleagues, with an educational alexandro from [employer]. Thrive Questionnaire Date Thrive assessed: 01/29/23 ROLANDO-7 AMB Questionnaire ROLANDO-7 Date ROLANDO - 7 assessed: 07/10/23 Feeling nervous, anxious, or on edge: 2 = More than half the days Not being able to stop or control worryin = More than half the days Worrying too much about different things: 2 = More than half the days Trouble relaxin = Several days Being so restless that it is hard to sit still: 2 = More than half the days Becoming easily annoyed or irritable: 2 = More than half the days Feeling afraid as if something awful might happen: 2 = More than half the days Total ROLANDO-7 score (0-4 normal; 5-9 mild; 10-14 moderate; 15-21 severe): 13 Source: Developed by Drs. Romaine Ernst, Bibi Fitzpatrick, Baltazar Law and colleagues, with an educational alexandro from [employer]. ROLANDO-7 Assessment Billing ROLANDO-7 Assessment Tool: ROLANDO-7 Assessment 61838 (Patient starting therapy next week. ) Review of Systems Const All systems reviewed & are unremarkable except as noted in HPI and below Psych Reports depression (Sometimes during the day, family and friends live in different state. ), Denies homicidal ideation and Denies suicidal ideation Physical exam (Primary Care) Vital Signs: Last Vital Signs Pulse 60 07/10/23 10:59 BP 122/70 07/10/23 10:59 Pulse Ox 99 07/10/23 10:59 Care Plan Goal for BP management: Blood pressure under control. BMI result Body Mass Index 27.2 Tobacco/Smoking Status: Tobacco use Status Tobacco use date assessed 06/02/23 07/10/23 11:00 Patient Tobacco Use Status Former Tobacco user 07/10/23 11:00 e-Cigarette/Vaping Use Never Used 07/10/23 11:00 Depression Screening Interpretation: Positive Depression Screening Follow-up: In treatment (starting therapy next week. ) Thrive Assessment: Date of Thrive Assessment Date Thrive assessed 01/29/23 07/10/23 11:00 Const Other: Appearance: Alert.? Oriented X3.? No acute distress.? Head: Normocephalic. Neck: Normal inspection.? Neck supple.? CVS: Normal heart rate and rhythm.? Pulses normal.? Respiratory: No respiratory distress.? Breath sounds normal.? Neuro: Oriented X 3.? No motor deficit.? No sensory deficit. Assessment and Plan Assessment & Plan (1) Depression: Comment: Patient starting therapy next week. Will wait on effectiveness of therapy before starting medication. Code(s): F32.A - Depression, unspecified Qualifiers: Depression Type: unspecified Qualified Code(s): F32.A - Depression, unspecified (2) Insomnia: Comment: Patient currently utilizing hydroxyzine p.r.n. with good effect Code(s): G47.00 - Insomnia, unspecified Qualifiers: Insomnia type: unspecified Qualified Code(s): G47.00 - Insomnia, unspecified Plan: Will draw labs. Plan Follow-up appointment in 2 months Orders: Orders Comprehensive Met. Panel Today E11.9 - Type 2 diabetes mellitus without complications Complete Blood Count Auto Diff Today Z13.21 - Encounter for screening for nutritional disorder Coding Level of Care Code Est Pt Level 3 (18353) Diagnoses Depression, unspecified depression type F32.A Depression Type: unspecified Insomnia, unspecified type G47.00 Insomnia type: unspecified Additional Codes ROLANDO-7 Assessment Billing - ROLANDO-7 Assessment Tool: ROLANDO-7 Assessment 56626 ([id number]) Time Spent (min) 28
[2023-07-10 10:59] VITALS: BP 122/70; PULSE 60; O2SAT 99; BMI 27.2
== END 2023-07-10 13:39 | disposition home or self-care (01) ==
PROVIDERS: PCP Nurse Practitioner Primary Care; Visit Provider Nurse Practitioner Primary Care
DX: G47.00 Insomnia, unspecified (principal); F32.A Depression, unspecified
CPT/HCPCS: 99213

== ENCOUNTER 2023-07-22 07:14 | Outpatient (AMB) | payer OTHER, SELFPAY ==
[2023-07-22 08:17] VITALS: BP 114/72; PULSE 70; BMI 26.7
--- NOTE | 2023-07-22 08:17 | MHC.OFFVIS ---
Vital Signs 07/22/23 08:17 Height 5 ft 11 in Weight 191 lb 5.78 oz BMI 26.7 BP 114/72 Blood Pressure Location Lt brachial Position Sitting Pulse 70 Pulse Source Pulse Oximeter Intake Visit Reasons: 2 mth f/up echo/[place] records Surveyor [employer] Required: Yes Surveyor Geophysical Prospecting Language: Manager Of Software Name: pk maradiaga [id number] Allergies metformin Adverse Reaction (Mild, Uncoded 07/22/23 08:21) Headache Medication List - Last Reconciled 07/22/23 by MARCELINO ForrestC atorvastatin 40 mg PO DAILY blood pressure test kit-large As directed blood sugar diagnostic (FreeStyle Lite Strips) Test blood sugar once a day blood-glucose meter (FreeStyle Lite Meter kit) As directed diclofenac sodium 1% 2 grams topical QID PRN empagliflozin (Jardiance) 10 mg PO DAILY folic acid 1 mg PO DAILY hydroxyzine HCl 25 mg PO BEDTIME PRN lancets (FreeStyle Lancets) Test blood sugar once a day metoprolol tartrate 50 mg PO BID pantoprazole 20 mg PO DAILY sacubitril-valsartan 24-26 mg (Entresto) 1 tab PO BID simethicone 180 mg PO DAILY PRN HPI HPI 2 mth f/up echo/[place] records: Details: Dontrell is a 63-year-old male with past medical history of hyperlipidemia, Congestive heart failure who had been following with training and development coordinator in [place] and has since moved to this area. On last visit here he was noted to be on appropriate med management for CMP/Congestive heart failure and an echocardiogram was done. His records from [place] were also requested. Today he presents for follow-up and brings copies of his health records from [place]. He tells me he has been doing well since his last visit in April. He denies having any chest discomfort at rest or with activity. No concerning shortness of breath, PND, orthopnea or edema. No heart palpitations, lightheadedness, presyncope, syncope, falls. He is taking his medications as directed. [facility] Medical History Congestive heart failure Hyperlipidemia Surgical History History of thoracentesis Family History Mother Heart problem Social History Housing: Apartment Patient Tobacco Use Status: Former Tobacco user e-Cigarette/Vaping Use: Never Used service: No Current occupational status: retired Cognitive needs: No Hearing needs: No Vision needs: Yes Review of Systems Const All systems reviewed & are unremarkable except as noted in HPI and below ENT Denies dizziness Card Denies chest pain, Denies chest pain at rest, Denies chest pain with activity, Denies rapid heart rate, Denies pedal edema, Denies edema, Denies leg edema, Denies lightheadedness, Denies palpitations, Denies dyspnea, Denies dyspnea on exertion and Denies orthopnea Resp Denies cough, Denies dyspnea and Denies dyspnea on exertion GI Denies hematochezia and Denies change in stool character Musc Denies abnormal gait, Denies limited range of motion, Denies muscle cramps, Denies muscle weakness, Denies numbness, Denies radiating pain into limb, Denies stiffness and Denies tingling Neuro Denies abnormal gait, Denies dizziness, Denies numbness and Denies tingling Endo Denies palpitations Physical Exam Vital Signs: Last Vital Signs Pulse 70 07/22/23 08:17 BP 114/72 07/22/23 08:17 BMI result Body Mass Index 26.7 Const General: cooperative, healthy appearing, comfortable and no acute distress Orientation/consciousness: patient oriented x3 Neck Neck: Yes normal visual inspection and Yes no JVD Resp Effort & Inspection: normal respiratory effort Auscultation: clear to auscultation bilaterally, no rales and no rhonchi Cardio Jugular venous distension: no JVD Rate: regular rate Rhythm: regular rhythm Heart sounds: S1 normal heart sound present, S2 normal heart sound present, no murmurs and no rubs Neuro General: patient oriented x3 Extrem General: Yes normal to inspection and No no pedal edema Psych Appearance: grossly normal Mental Status: mental status grossly normal Speech and movement: Normal speech and movement present Assessment & Plan Assessment & Plan (1) Congestive heart failure: Code(s): I50.9 - Heart failure, unspecified Category: Medical Plan: Reported history of Congestive heart failure. Patient previously followed with training and development coordinator in [place]. He brings his records from [place] to this visit. I spent time reviewing them and find that he does have a history of cardiomyopathy for the last 10 years with EF ranging 32-45%. He has had evidence of inferior wall motion abnormality on echocardiogram as far back as 2013. Last echo included in records was 2021 showing EF 32% with global hypokinesis. Records include findings of a moderate to large size left pleural effusion back in 2013. No recent hospitalizations or reported heart failure/ recurrent pleural effusions. Echocardiogram done on 05/27/2023 shows EF 50-55%, wall motion abnormality consistent with CAD inferiorly, no valve abnormalities. I went through the records and I do not see a definitive diagnosis of CAD or prior [place], the quantity of records is extensive. On exam today he has no clinical signs of heart failure or reports of angina. He denies having shortness of breath at rest or with activity. Will check an exercise nuclear stress test to assess for ischemia. Will have him continue on metoprolol, Entresto, Jardiance for neurohormonal modulation. Continue atorvastatin with ideal LDL goal less than 70. If confirmed to have CAD then would recommend daily aspirin. Signs and symptoms of heart failure and angina reviewed with him. Cardiology follow-up 3 months, sooner if needed to review test results and plan of care going forward. (2) Abnormal echocardiogram findings without diagnosis: Code(s): R93.1 - Abnormal findings on diagnostic imaging of heart and coronary circulation Category: Medical Plan: As above Plan Time spent on chart review, documentation, interview and assessment Orders: Orders CA stress test Today I50.9 - Heart failure, unspecified, R93.1 - Abnormal findings on diagnostic imaging of heart and coronary circulation NM cardiolite stress test Today I50.9 - Heart failure, unspecified, R93.1 - Abnormal findings on diagnostic imaging of heart and coronary circulation Coding Level of Care Code Est Pt Level 3 (04881) Diagnoses Congestive heart failure I50.9 Abnormal echocardiogram findings without diagnosis R93.1 Time Spent (min) 24
== END 2023-07-22 08:56 | disposition home or self-care (01) ==
PROVIDERS: PCP Nurse Practitioner Primary Care; Visit Provider Nurse Practitioner Family
DX: I50.9 Heart failure, unspecified (principal); R93.1 Abnormal findings on diagnostic imaging of heart and coronary circulation
CPT/HCPCS: 99213

== ENCOUNTER → 2023-07-22 07:14 | Outpatient (BNVA) | payer OTHER, SELFPAY | PROVIDERS: PCP Nurse Practitioner Primary Care; Visit Provider Nurse Practitioner Family | DX: I11.0 Hypertensive heart disease with heart failure (principal); I50.9 Heart failure, unspecified; R93.1 Abnormal findings on diagnostic imaging of heart and coronary circulation | CPT/HCPCS: 99212 ==

== ENCOUNTER 2023-07-31 10:56 | Outpatient (AMB) | payer OTHER, SELFPAY ==
[2023-07-31 09:55] VITALS: BP 122/70; PULSE 64; O2SAT 98; BMI 26.8
--- NOTE | 2023-07-31 09:55 | A.OFFPC_ITS ---
Vital Signs 07/31/23 09:55 Height 5 ft 11 in Weight 192 lb BMI 26.8 BP 122/70 Blood Pressure Location Rt brachial Position Sitting Pulse 64 Pulse Source Pulse Oximeter Pulse Oximetry (%) 98 Oxygen Delivery Method Room Air Intake Visit Reasons: 6 month fu Intake Note: pt is here today for follow up Master Planner Required: No Allergies metformin Adverse Reaction (Mild, Uncoded 07/31/23 11:25) Headache Medication List - Last Reconciled 07/31/23 by ISAI Chavarria atorvastatin 40 mg PO DAILY blood pressure test kit-large As directed blood sugar diagnostic (FreeStyle Lite Strips) Test blood sugar once a day blood-glucose meter (FreeStyle Lite Meter kit) As directed diclofenac sodium 1% 2 grams topical QID PRN empagliflozin (Jardiance) 10 mg PO DAILY folic acid 1 mg PO DAILY hydroxyzine HCl 25 mg PO BEDTIME PRN lancets (FreeStyle Lancets) Test blood sugar once a day metoprolol tartrate 50 mg PO BID pantoprazole 20 mg PO DAILY sacubitril-valsartan 24-26 mg (Entresto) 1 tab PO BID simethicone 180 mg PO DAILY PRN Tobacco use date assessed: 07/31/23 Dental Screening Dental Screen Date: 07/31/23 HPI HPI Comments History of Present Illness Details Patient is a 63-year-old male in today for follow-up. For anxiety and depression. He has establish care with therapist, is also currently taking hydroxyzine p.r.n. at night for insomnia secondary to anxiety. Patient states that the medication has been working well. Does not want to start a daily medication at this time. Denies SI/HI Did receive notes from previous provider. Patient not currently utilizing metformin due to adverse effect with headache. However patient states that he only developed headache when he was titrated up to 1000 mg p.o. daily. Discussed with patient that it may be beneficial to restart metformin 500 mg p.o. daily. Patient would like to wait, will follow-up in 1 month check A1c. Patient's checking blood sugars daily states they are controlled. Will draw CMP CBC today. [facility] Medical History (Updated 07/31/23 @ 11:28 by ISAI Chavarria) Congestive heart failure Hyperlipidemia Surgical History History of thoracentesis Family History Mother Heart problem Social History Housing: Apartment Patient Tobacco Use Status: Former Tobacco user e-Cigarette/Vaping Use: Never Used service: No Current occupational status: retired Cognitive needs: No Hearing needs: No Vision needs: Yes Questionnaire PHQ-9 Over the last 2 weeks, how often have you been bothered by any of the following problems? 76876 - PHQ-9 Billing: Patient declined-do not bill Source: Developed by Drs. Romaine Ernst, Bibi Fitzpatrick, Baltazar Law and colleagues, with an educational alexandro from [employer]. Thrive Questionnaire Date Thrive assessed: 07/31/23 I am a: Patient What is your living situation today?: I have a steady place to live Within the past 12 months, did the food you bought not last and you didn't have the money to get more?: Often true Within the past 12 months, did you worry whether your food would run out before you got money to buy more?: Often true Do you have trouble paying for medicines?: No Do you have trouble getting transportation to medical appointments?: No Do you have trouble paying your heating and electricity bill?: No Do you have trouble taking care of your child, family member or friend?: No Do you have trouble with day-to-day activities such as bathing, preparing meals, shopping, managing finances, etc.?: No Are you currently unemployed and looking for a job?: No Are you interested in more education?: No THRIVE Score: 2 AUDIT C Alcohol Use Questionnaire (AUDIT-C) 1. How often do you have a drink containing alcohol?: Never Total Score: 0 Score Reviewed/Action Taken: Yes ROLANDO-7 AMB Questionnaire ROLANDO-7 Date ROLANDO - 7 assessed: 07/10/23 Source: Developed by Drs. Romaine Ernst, Baltazar Macias and colleagues, with an educational alexandro from [employer]. Review of Systems Const All systems reviewed & are unremarkable except as noted in HPI and below Physical exam (Primary Care) Care Plan Goal for BP management: Blood pressure controlled. Tobacco/Smoking Status: Tobacco use Status Tobacco use date assessed 07/31/23 07/31/23 09:56 Patient Tobacco Use Status Former Tobacco user 07/31/23 09:56 e-Cigarette/Vaping Use Never Used 07/31/23 09:56 Thrive Assessment: Date of Thrive Assessment Date Thrive assessed 01/29/23 07/31/23 09:56 Const Other: Appearance: Alert.? Oriented X3.? No acute distress.? Head: Normocephalic. CVS: Normal heart rate and rhythm.? Pulses normal.? Respiratory: No respiratory distress.? Breath sounds normal.? Neuro: Oriented X 3.? No motor deficit.? No sensory deficit. CN 2-12 intact Assessment and Plan Assessment & Plan (1) Depression: Comment: Patient has started therapy with good effect. Denies SI/HI. Patient utilizes hydroxyzine at night for insomnia secondary to anxiety and depression. Code(s): F32.A - Depression, unspecified Qualifiers: Depression Type: unspecified Qualified Code(s): F32.A - Depression, unspecified Plan: Will draw CMP CBC Plan Patient will follow-up in 1 month for diabetic. Medications: New folic acid 1 mg PO DAILY 90 tabs 0RF Refilled atorvastatin 40 mg PO DAILY 90 tabs 1RF Coding Level of Care Code Est Pt Level 3 (61683) Diagnoses Depression, unspecified depression type F32.A Depression Type: unspecified Time Spent (min) 22
== END 2023-07-31 12:35 | disposition home or self-care (01) ==
PROVIDERS: PCP Nurse Practitioner Primary Care; Visit Provider Nurse Practitioner Primary Care
DX: F32.A Depression, unspecified (principal)
CPT/HCPCS: 99213

== ENCOUNTER 2023-07-31 11:22 | Outpatient (REF) | payer OTHER, SELFPAY ==
[2023-07-31 13:24] LABS: MANUAL DIFF FLAG NO
[2023-07-31 13:34] LABS: Basophils Percent Auto 0.7 % (0-2); Eosinophils Absolute Auto 0.1 X10*3/uL (0.0-0.4); Eosinophils Percent Auto 1.4 % (0-4); Hemoglobin 14.1 g/dl (14.0-18.0); Imm Gran Abs Auto 0.02 X10*3/uL (0.00-0.03); Imm Gran Pct Auto 0.5 % (0.0-0.4); Lymphocytes Absolute Auto 1.7 X10*3/uL (1.2-4.9); Lymphocytes Percent Auto 39.6 % (20-40); Mean Corpuscular Hemoglobin 30.9 pg (27.0-33.0); Mean Corpuscular Volume 96.3 fL (80.0-98.0); Mean Platelet Volume 10.1 fL (9.4-12.4); Monocytes Absolute Auto 0.2 X10*3/uL (0.1-1.2); Monocytes Percent Auto 5.6 % (2-11); Neutrophils Absolute Auto 2.3 x10*3/uL (2.0-8.3); Neutrophils Percent Auto 52.2 % (45-73); Platelet Count 223 X10*3/uL (160-400); Red Blood Count 4.57 X10*6/uL (4.60-5.80); Red Cell Distribution Width 13.8 % (11.0-16.0); White Blood Count 4.3 X10*3/uL (4.8-10.8)
[2023-07-31 13:50] LABS: Alanine Aminotransferase 12 U/L (0-40); Albumin Level 4.3 g/dL (3.5-5.0); Alkaline Phosphatase 76 U/L (39-117); Anion Gap 14 (12-20); Aspartate Amino Transferase 16 U/L (5-37); Bilirubin Total 0.4 mg/dL (0.0-1.0); Blood Urea Nitrogen 9 mg/dL (9-16); Calcium 9.4 mg/dL (8.4-10.2); Carbon Dioxide 29 mmol/L (22-29); Chloride 105 mmol/L (96-108); Estimated Glomerular Filt Rate > 60; Glucose Random 113 mg/dL (60-115); Potassium 4.2 mmol/L (3.3-5.1); Sodium 144 mmol/L (135-145); Total Protein 6.8 g/dL (6.5-8.0)
== END 2023-07-31 11:23 | disposition home or self-care (01) ==
LOC: HO.HMGCLDS 11:22
PROVIDERS: PCP Nurse Practitioner Primary Care; Visit Provider Nurse Practitioner Primary Care
DX: E11.9 Type 2 diabetes mellitus without complications (principal); Z13.21 Encounter for screening for nutritional disorder
CPT/HCPCS: 36415; 80053; 85025

== ENCOUNTER 2023-08-26 13:51 | Outpatient (REF) | payer OTHER, SELFPAY ==
[2023-08-26 16:20] LABS: Lipase 19 U/L (8-78)
[2023-08-26 16:39] LABS: TSH reflex Free T4 0.87 uIU/mL (0.32-4.0)
[2023-08-26 16:51] LABS: Folate > 20.0 ng/mL (> or = 4.0); Vitamin B12 706 pg/mL (200-900)
[2023-08-27 13:44] LABS: Transglutaminase Ab IgG <1.0 U/mL; Transglutaminase IgA <1.0 U/mL
[2023-08-29 10:38] LABS: Vitamin D 25-OH, D2 <4 ng/mL; Vitamin D 25-OH, D3 20 ng/mL; Vitamin D 25-OH, Total 20 ng/mL (30-100)
== END 2023-08-26 13:52 | disposition home or self-care (01) ==
LOC: HO.LAB 13:51
PROVIDERS: PCP Nurse Practitioner Primary Care; Visit Provider Nurse Practitioner Family
DX: R10.13 Epigastric pain (principal); R10.9 Unspecified abdominal pain; E55.9 Vitamin D deficiency, unspecified; K59.00 Constipation, unspecified; R19.7 Diarrhea, unspecified
CPT/HCPCS: 36415; 82306; 82607; 82746; 83690; 84443; 86364; 99202

== ENCOUNTER 2023-08-26 13:51 | Outpatient (AMB) | payer OTHER, MEDICAID, SELFPAY ==
--- NOTE | 2023-08-26 14:18 | A.OFFVIS_ITS ---
Vital Signs 08/26/23 14:29 Height 5 ft 11 in Weight 195 lb 5.273 oz BMI 27.2 BP 126/74 Blood Pressure Location Lt brachial Position Sitting Pulse 58 Pulse Source Pulse Oximeter Pulse Oximetry (%) 99 Oxygen Delivery Method Room Air Intake Visit Reasons: GERD, Abdominal Distention Intake Note: Dontrell presents in office today for a scheduled initial assessment visit. CC; Pt reports experiencing bloating/abdominal distention as well as GERD sx. Pt reports onset approximately dated . Pt was given pantoprazole as well as simethicone by his PCP which has helped with some of his sx. Pt primarily noticed sx surrounding intake, worse at night. Computer Operations Analyst Required: Yes Computer Operations Analyst Services: Computer Operations Analyst Present Computer Operations Analyst Name: [id number] Information Interpreted: non-clinical & clinical Accompanied by: Family/Other Allergies metformin Adverse Reaction (Intermediate, Verified 09/03/23 11:31) Headache HPI HPI GERD, Abdominal Distention: Details: 63-year-old male with past medical history of diabetes, insomnia, depression, GERD, hyperlipidemia, Congestive heart failure is here today for initial consultation. Patient was sent to us to evaluate his symptoms of epigastric pain postprandially. Patient reports that symptoms started in the beginning of the year. Noticed to be getting worse in the past couple months. Patient was placed by his PCP on PPI. Patient admits to symptoms getting better after we start taking it, however he feels like symptoms are getting worse at night time. Sometimes after certain meals he will continue to have abdominal pain and bloating. Pain mainly in the epigastric area. Patient is on Jardiance and his blood sugars have been semi controlled. His A1c in May was 6.8%. Patient denies any nausea or vomiting. Denies any dyspepsia, dysphagia or odynophagia. Denies any melena, hematochezia, unintentional weight loss or ribbon like stools. [facility] Medical History Congestive heart failure Hyperlipidemia Surgical History History of thoracentesis Family History Mother Heart problem Social History (Reviewed 09/03/23 @ 12:13 by DEREJE Chavarria Housing: Apartment Patient Tobacco Use Status: Former Tobacco user e-Cigarette/Vaping Use: Never Used service: No Current occupational status: retired Cognitive needs: No Hearing needs: No Vision needs: Yes Review of Systems Const Denies weight gain and Denies weight loss ENT Reports no additional complaints, Denies dysphagia and Denies odynophagia Card Reports no additional complaints Resp Reports no additional complaints GI Denies abdominal pain, Denies belching, Denies melena, Denies bloating, Denies change in bowel habits, Denies dysphagia, Denies excessive flatus, Denies dy spepsia, Reports heartburn (Occasional), Denies diarrhea, Denies loose stools, Denies nausea, Denies odynophagia and Denies vomiting Reports no additional complaints Musc Reports no additional complaints Neuro Reports no additional complaints Psych Reports no additional complaints Endo Reports no additional complaints Physical Exam Vital Signs: Last Vital Signs Pulse 58 08/26/23 14:29 BP 126/74 08/26/23 14:29 Pulse Ox 99 08/26/23 14:29 Oxygen Delivery Method Room Air 08/26/23 14:29 BMI result Body Mass Index 27.2 Const General: healthy appearing, no acute distress and well developed Nutritional Appearance: well nourished Orientation/consciousness: patient oriented x3 Resp Effort & Inspection: normal respiratory effort, able to speak in complete sentences, no tracheal deviation and symmetric chest movement Auscultation: clear to auscultation bilaterally Cardio Rate: regular rate GI Inspection: Yes normal to inspection and No distended Palpation (GI): Soft to palpation, not firm, nontender and No hepatosplenomegaly present Auscultation: normal bowel sounds General: Yes no CVA tenderness Back/Spine/Pelvis Back: no CVA tenderness Skin General skin exam: elasticity normal, turgor normal and dry skin Neuro General: patient oriented x3 Psych Appearance: grossly normal Mental Status: mental status grossly normal Assessment & Plan Assessment & Plan (1) GERD (gastroesophageal reflux disease): Code(s): K21.9 - Gastro-esophageal reflux disease without esophagitis Category: Medical Qualifiers: Esophagitis presence: esophagitis presence not specified Qualified Code(s): K21.9 - Gastro-esophageal reflux disease without esophagitis (2) Postprandial abdominal bloating: Code(s): R14.0 - Abdominal distension (gaseous) (3) Postprandial epigastric pain: Code(s): R10.13 - Epigastric pain Plan Will rule out celiac, pancreatitis. Symptoms better with pantoprazole. Discu ssed with patient avoiding dietary triggers and late night snacking. Staying upright for minimum 3 hours after meals discussed with patient. Low FODMAP diet discussed with patient. List of food recommended as well as list of food to avoid given to patient. Will add famotidine to the regimen at bedtime. I will see him in 2 months. Patient will call the office if he will have any GI concerning symptoms. He is agreeable to this plan and verbalizes understanding of instructions. She was given the opportunity to ask questions and all questions answered. Thank you for allowing me to participate in his care Orders: Orders Transglutaminase Ab IgG 08/26/23 R10.9 - Unspecified abdominal pain Transglutaminase IgA 08/26/23 R10.9 - Unspecified abdominal pain TSH reflex Free T4 08/26/23 K59.00 - Constipation, unspecified Vitamin D 25-OH (D2 and D3) 08/26/23 E55.9 - Vitamin D deficiency, unspecified Lipase 08/26/23 R10.9 - Unspecified abdominal pain Vitamin B12 and Folate 08/26/23 R19.7 - Diarrhea, unspecified Medications: New famotidine (Pepcid) 20 mg PO BEDTIME 30 tabs 3RF K21.9 - Gastro-esophageal reflux disease without esophagitis Coding Level of Care Code New Pt Level 4 (30443) Diagnoses Gastroesophageal reflux disease, unspecified whether esophagitis present K21.9 Esophagitis presence: esophagitis presence not specified Postprandial abdominal bloating R14.0 Postprandial epigastric pain R10.13 Time Spent (min) 45 Comment 30 minutes spent with patient and additional 15 minutes spent reviewing his records
[2023-08-26 14:29] VITALS: BP 126/74; PULSE 58; O2SAT 99; BMI 27.2
== END 2023-08-26 15:01 | disposition home or self-care (01) ==
PROVIDERS: PCP Nurse Practitioner Primary Care; Visit Provider Nurse Practitioner Family
DX: K21.9 Gastro-esophageal reflux disease without esophagitis (principal); R14.0 Abdominal distension (gaseous); R10.13 Epigastric pain
CPT/HCPCS: 99204

== ENCOUNTER 2023-08-27 11:08 | Outpatient (REF) | payer OTHER, SELFPAY ==
[2023-08-27 11:52] LABS: Appearance Urine Clear; Color Urine Yellow; Glucose Urine UA >=1000 mg/dL (Negative); Leukocyte Esterase Urine Negative (Negative); Nitrite Urine Negative (Negative); UMIC TRIGGER UACC YES; Urine Blood Negative (Negative); Urine Ketones Negative (Negative); Urine Protein Negative (Neg-Trace)
[2023-08-27 12:03] LABS: Bacteria Urine None Seen (None Seen); Hyaline Casts Urine 0-2 /LPF (0-2); RBC Urine 0-2 /HPF (0-2); Squamous Epithelial Cell Urine 0-2 /HPF (0-2); WBC Urine 0-5 /HPF (0-5)
== END 2023-08-27 11:09 | disposition home or self-care (01) ==
LOC: HO.LNP 11:08
PROVIDERS: Visit Provider Nurse Practitioner Primary Care
DX: E11.9 Type 2 diabetes mellitus without complications (principal)
CPT/HCPCS: 81001

== ENCOUNTER → 2023-09-01 08:06 | Outpatient (REF) | payer OTHER, SELFPAY ==
--- NOTE | ~2023-09-01 | NM_ITS ---
EXERCISE MYOCARDIAL PERFUSION STUDY INDICATION: Congestive heart failure TECHNIQUE: The patient was brought in for an exercise perfusion study on 09/01/2023. Patient performed exercise as per Augustine protocol and was injected 30 mCi of sestamibi once target heart rate was achieved. Images were obtained using the SPECT gamma camera interlaced with the gating device. Images were obtained in supine position. Resting perfusion study was performed on 09/03/2023. Patient was administered 30 mCi of sestamibi intravenously at rest. Images were then obtained in supine position. Images were processed with the software and compared side to side in short axis, horizontal long axis and vertical long axis views. Total DLP 79mGy-cm. FINDINGS: Raw images were reviewed. The stress perfusion study showed diminished tracer uptake along the inferior wall. There is improvement with CT attenuation correction that could indicate components of diaphragmatic attenuation artifact. The gated study shows normal LV systolic function with calculated LVEF of 62%. LV cavity is normal in size. The gated study shows diminished inferior wall thickening. Resting study shows diminished tracer uptake along the inferior wall. There is improvement with CT attenuation correction suggestive of diaphragmatic attenuation artifact. Gating at rest reveals normal wall motion with ejection fraction at 39%-visually appears higher. The findings are consistent with fixed inferior perfusion defect. No clear reversible defects. NM/NM cardiolite stress test IMPRESSION: 1. Myocardial perfusion imaging study shows fixed inferior perfusion defect that could indicate a prior infarction. Cannot exclude components of diaphragmatic attenuation artifact. 2. Gated LVEF is 62% during stress. Visually normal during rest. 3. Transient ischemic dilatation not present. EKG component of the test reported separately.
--- NOTE | 2023-09-01 08:11 | CA_ITS ---
Acquisition Time: 2023-09-01 08:46:00 Total Exercise Time: 00:06:33 Test Indications: ABN.ECHO FINDINGS,CHF Medications: Protocol: AVINASH Max HR: 150 BPM 95% of Pred: 157 BPM Max BP: 148/074 mmHG Max Work Load: 7.8 METS Exercise stress test exercise 6 min 33 sec of avinash protocol achieving 94% MPHR, without anignal symptoms, with normotensive resposne to exercise, with isolated PACs and PVCs and ventricular cuplet, wioth scooping noted in leads 2, 3, aVF, V5-V6. Nuclear images. pending. Test reviewed with Dr. Linares Patient took metoprolol at end of test. Referred By: Aury Hoang Overread By: Radha Stark
== END ==
LOC: HO.CARD 08:06
PROVIDERS: PCP Nurse Practitioner Primary Care; Visit Provider Nurse Practitioner Family
DX: R93.1 Abnormal findings on diagnostic imaging of heart and coronary circulation (principal); I50.9 Heart failure, unspecified
CPT/HCPCS: 78452; 93017; A9500

== ENCOUNTER → 2023-09-01 08:11 | Outpatient (BNV) | payer OTHER, SELFPAY | PROVIDERS: PCP Nurse Practitioner Primary Care; Visit Provider Nurse Practitioner | DX: I50.9 Heart failure, unspecified (principal) | CPT/HCPCS: 78452; 93016; 93018 ==

== ENCOUNTER 2023-09-03 11:03 | Outpatient (AMB) | payer OTHER, SELFPAY ==
--- NOTE | 2023-09-03 11:31 | MHC.PC.OV ---
Vital Signs 09/03/23 11:44 Height 5 ft 11 in Weight 195 lb BMI 27.2 BP 120/70 Blood Pressure Location Lt brachial Position Sitting Pulse 58 Pulse Source Pulse Oximeter Pulse Oximetry (%) 98 Oxygen Delivery Method Room Air Intake Visit Reasons: Follow up DM Intake Note: Pt is here for his f/u for Diabetes Allergies metformin Adverse Reaction (Intermediate, Verified 09/03/23 11:31) Headache Tobacco use date assessed: 09/03/23 Dental Screening Dental Screen Date: 07/31/23 HPI HPI Comments History of Present Illness Details Patient is here for diabetic follow-up. Denies any symptoms of polyuria polydipsia. Denies any tingling numbness. Up-to-date with Ophthalmology and Podiatry. Up-to-date with microalbumin. Patients A1c in office today is 6.9. He would like to continue to bring blood sugar levels down with improved diet and exercise. Discussed with patient the potential to titrate up the Jardiance in the future, would like A1C values to be below 6.5. PFSH Medical History Congestive heart failure Hyperlipidemia Surgical History History of thoracentesis Family History Mother Heart problem Social History Housing: Apartment Patient Tobacco Use Status: Former Tobacco user e-Cigarette/Vaping Use: Never Used service: No Current occupational status: retired Cognitive needs: No Hearing needs: No Vision needs: Yes Questionnaire Thrive Questionnaire Date Thrive assessed: 07/31/23 AUDIT C Alcohol Use Questionnaire (AUDIT-C) 1. How often do you have a drink containing alcohol?: Never 3. How often do you have six or more drinks on one occasion?: Never Total Score: 0 ROLANDO-7 AMB Questionnaire ROLANDO-7 Date ROLANDO - 7 assessed: 07/10/23 Source: Developed by Drs. Romaine Ernst, Bibi Fitzpatrick, Baltazar Law and colleagues, with an educational alexandro from [email or web address]. Review of Systems Const All systems reviewed & are unremarkable except as noted in HPI and below Physical exam (Primary Care) Vital Signs: Last Vital Signs Pulse 58 09/03/23 11:44 BP 120/70 09/03/23 11:44 Pulse Ox 98 09/03/23 11:44 Oxygen Delivery Method Room Air 09/03/23 11:44 BMI result Body Mass Index 27.2 Tobacco/Smoking Status: Tobacco use Status Tobacco use date assessed 09/03/23 09/03/23 11:33 Patient Tobacco Use Status Former Tobacco user 09/03/23 11:33 e-Cigarette/Vaping Use Never Used 09/03/23 11:33 Thrive Assessment: Date of Thrive Assessment Date Thrive assessed 07/31/23 09/03/23 11:33 Const General: cooperative and no acute distress Orientation/consciousness: patient oriented x3 Limitations: no limitations HENMT Head: Yes normal to inspection Eyes General: appearance normal, both eyes and all related structures Sclerae: sclerae normal Corneas: corneas normal Pupils: Equal, round and reactive pupils present Neck Neck: Yes normal visual inspection Resp Effort & Inspection: normal respiratory effort Auscultation: clear to auscultation bilaterally Cardio Rate: regular rate Rhythm: regular rhythm Heart sounds: S1 normal heart sound present and S2 normal heart sound present Skin General skin exam: no rashes or lesions noted Neuro Other: Sensate to monofilament. General: patient oriented x3 and deep tendon reflexes 2+ bilaterally Cranial nerves: Yes Equal, round and reactive pupils present Psych Thought process: Normal thought process present Thought content: suicidality and no homicidality Insight: Good insight present (Psych) Judgement: Good judgement present (Psych) Results AMB Hemoglobin A1c AMB Hemoglobin A1c 6.9 % Last Edit by Lucas Yuen CMA on 09/03/23 11:56 Assessment and Plan Assessment & Plan (1) Diabetes type 2, controlled: Comment: Patient had A1c drawn in office. He should continue to watch his diet which he has been doing a good job of, and continue to take his medication as directed. He should continue to take blood sugar levels at home. Discussed with patient the potential to titrate up Jardiance and future appointments. Code(s): E11.9 - Type 2 diabetes mellitus without complications Qualifiers: Diabetes mellitus [facility] insulin use: without paper reeler use Diabetes mellitus complication status: without complication Qualified Code(s): E11.9 - Type 2 diabetes mellitus without complications Plan: Follow up in 3 months Orders: Orders AMB Hemoglobin A1c Today E11.9 - Type 2 diabetes mellitus without complications Medications: Changed From metoprolol tartrate 50 mg PO BID 90 tabs 0RF To metoprolol tartrate 50 mg PO DAILY 90 tabs 0RF Refilled blood sugar diagnostic (FreeStyle Lite Strips) Test blood sugar once a day 100 ea 1RF E11.9 - Type 2 diabetes mellitus without complications pantoprazole 20 mg PO DAILY 60 tabs 0RF Discontinued simethicone Discontinued Reason: Doctor's Order 180 mg PO DAILY PRN 30 caps 0RF for abdominal pain Coding Level of Care Code Est Pt Level 3 (94994) Diagnoses Controlled type 2 diabetes mellitus without complication, without long-term current use of insulin E11.9 Diabetes mellitus paper reeler insulin use: without [facility] use Diabetes mellitus complication status: without complication Time Spent (min) 26
[2023-09-03 11:44] VITALS: BP 120/70; PULSE 58; O2SAT 98; BMI 27.2
== END 2023-09-03 17:58 | disposition home or self-care (01) ==
PROVIDERS: PCP Nurse Practitioner Primary Care; Visit Provider Nurse Practitioner Primary Care
DX: E11.9 Type 2 diabetes mellitus without complications (principal)
CPT/HCPCS: 83036; 99213

== ENCOUNTER 2023-11-03 08:18 | Outpatient (AMB) | payer OTHER, SELFPAY ==
[2023-11-03 08:56] VITALS: BP 106/54; PULSE 60; BMI 27.1
--- NOTE | 2023-11-03 08:56 | MHC.OFFVIS ---
Vital Signs 11/03/23 08:56 Height 5 ft 11 in Weight 194 lb 7.163 oz BMI 27.1 BP 106/54 L Blood Pressure Location Lt brachial Position Sitting Pulse 60 Pulse Source Pulse Oximeter Intake Visit Reasons: f/up nuc ett Radiographer Mammographer Required: Yes Radiographer Mammographer Name: Yang [id number] Accompanied by: Self / Same As Patient Allergies metformin Adverse Reaction (Intermediate, Verified 09/03/23 11:31) Headache Medication List - Last Reconciled 11/03/23 by Aramis Pedraza MD aspirin 81 mg PO DAILY atorvastatin 40 mg PO DAILY blood pressure test kit-large As directed blood sugar diagnostic (FreeStyle Lite Strips) Test blood sugar once a day blood-glucose meter (FreeStyle Lite Meter kit) As directed cholecalciferol (vitamin D3) 50 mcg PO DAILY diclofenac sodium 1% 2 grams topical QID PRN empagliflozin (Jardiance) 10 mg PO DAILY famotidine (Pepcid) 20 mg PO BEDTIME folic acid 1 mg PO DAILY hydroxyzine HCl 25 mg PO BEDTIME PRN lancets (FreeStyle Lancets) Test blood sugar once a day metoprolol tartrate 50 mg PO DAILY pantoprazole 20 mg PO DAILY sacubitril-valsartan 24-26 mg (Entresto) 1 tab PO BID HPI Comments Details: Dontrell returns for follow-up. In the past, he was seen for question of congestive heart failure. Previously living in [place] but then moved here. Overall, he states he is feeling fine. No complaints like angina or shortness of breath or in fact anything cardiac sounding. He seems to be getting along fine. Echocardiogram from [place]-moderately decreased LVEF; 33%; globally reduced wall motion; concentric LVH; grade 1 diastolic dysfunction; aortic root size 4.1 cm. Myocardial perfusion imaging study, 2020 thought to have positive EKG component but normal perfusion component. Cardiac catheterization 1996, reportedly normal. Overall, state as nonischemic cardiomyopathy. [facility] Medical History (Updated 11/03/23 @ 09:59 by Aramis Pedraza MD) Cardiomyopathy Congestive heart failure Hyperlipidemia Surgical History History of thoracentesis Family History Mother Heart problem Social History Housing: Apartment Patient Tobacco Use Status: Former Tobacco user e-Cigarette/Vaping Use: Never Used service: No Current occupational status: retired Cognitive needs: No Hearing needs: No Vision needs: Yes Review of Systems Const Denies chills, Denies fatigue, Denies fever(s), Denies weight gain and Denies weight loss ENT Denies dizziness Card Denies chest pain, Denies leg edema, Denies lightheadedness, Denies palpitations, Denies dyspnea on exertion, Denies orthopnea and Denies other Resp Denies cough and Denies dyspnea on exertion GI Denies hematochezia and Denies change in stool character Musc Denies abnormal gait, Denies muscle weakness, Denies numbness, Denies radiating pain into limb and Denies tingling Neuro Denies abnormal gait, Denies dizziness, Denies numbness and Denies tingling Endo Denies fatigue and Denies palpitations Physical Exam Vital Signs: Last Vital Signs Pulse 60 11/03/23 08:56 BP 106/54 L 11/03/23 08:56 BMI result Body Mass Index 27.1 Const General: comfortable and no acute distress Orientation/consciousness: patient oriented x3 HEENT Other: Unremarkable Head: Yes normal to inspection Neck Neck: Yes normal visual inspection Chest Chest palpation & inspection: normal inspection of the chest Resp Auscultation: clear to auscultation bilaterally Cardio Palpation: normal PMI Heart sounds: S1 normal heart sound present, S2 normal heart sound present, no gallops, no murmurs and no rubs GI Palpation (GI): Soft to palpation Back/Spine/Pelvis Other: unremarkable Skin General skin exam: no rashes or lesions noted Neuro General: patient oriented x3 Extrem General: Yes normal to inspection Psych Mental Status: mental status grossly normal Assessment & Plan Assessment & Plan (1) Heart failure with recovered ejection fraction (HFrecEF): Code(s): I50.32 - Chronic diastolic (congestive) heart failure Category: Medical Plan: In the past, it seems LVEF was as low in the 30s. Most recently, LVEF 50-55%. Described to have inferior wall motion abnormality. Myocardial perfusion imaging study with fixed perfusion defect, possible infarct versus diaphragmatic attenuation artifact. Overall, appears to have chronic congestive heart failure with recovered LVEF. Previously, labeled as nonischemic cardiomyopathy and possibly alcohol related. At the current time, he has got absolutely no symptoms. He can continue the current regimen including beta-blockers, Entresto, Jardiance. Not clear if he is on immediate release or sustained release beta-blockers. (2) Ascending aorta enlargement: Code(s): I77.89 - Other specified disorders of arteries and arterioles Category: Medical Plan: Aortic size at sinus of Valsalva-4.3 cm. Ascending aorta 3.7 cm. Minimal dilatation. Comparable to prior. Can follow periodically. Coding Level of Care Code Est Pt Level 4 (48296) Diagnoses Heart failure with recovered ejection fraction (HFrecEF) I50.32 Ascending aorta enlargement I77.89
== END 2023-11-03 09:16 | disposition home or self-care (01) ==
PROVIDERS: PCP Nurse Practitioner Primary Care; Visit Provider Internal Medicine
DX: I50.32 Chronic diastolic (congestive) heart failure (principal); I77.89 Other specified disorders of arteries and arterioles
CPT/HCPCS: 99214

== ENCOUNTER → 2023-11-03 08:18 | Outpatient (BNVA) | payer OTHER, SELFPAY | PROVIDERS: PCP Nurse Practitioner Primary Care; Visit Provider Internal Medicine | DX: I50.32 Chronic diastolic (congestive) heart failure (principal); I77.89 Other specified disorders of arteries and arterioles | CPT/HCPCS: 99212 ==

== ENCOUNTER 2023-11-14 08:28 | Outpatient (AMB) | payer MEDICARE, MEDICAID, SELFPAY ==
[2023-11-14 08:31] VITALS: BP 112/68; PULSE 62; O2SAT 99; BMI 26.7
--- NOTE | 2023-11-14 08:31 | MHC.OFFVIS ---
Vital Signs 11/14/23 08:31 Height 5 ft 11 in Weight 191 lb 12.835 oz BMI 26.7 BP 112/68 Blood Pressure Location Rt brachial Position Sitting Pulse 62 Pulse Source Pulse Oximeter Pulse Oximetry (%) 99 Oxygen Delivery Method Room Air Intake Visit Reasons: Discuss endoscopy and colonoscopy, GERD, Intake Note: Dontrell presents in office today for a scheduled FUV. CC: Pt is here to discuss on going sx, as well as to discuss possible upcoming egd and colo. Pt reports that they have been doing better since their last visit. Pt denies any current sx or concerns. Pt reports that they are still taking all their medications as instructed. Pt reports that they have previous hx of colo in 2018 ([facility]). Pt denies any prev hx of egd. 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 Symptoms better with pantoprazole. Discussed with patient avoiding dietary triggers and late night snacking. Staying upright for minimum 3 hours after meals discussed with patient. Low FODMAP diet discussed with patient. List of food recommended as well as list of food to avoid given to patient. Will add famotidine to the regimen at bedtime. I will see him in 2 months. Patient will call the office if he will have any GI concerning symptoms. He is agreeable to this plan and verbalizes understanding of instructions. She was given the opportunity to ask questions and all questions answered. ? Thank you for allowing me to participate in his care Orders Orders Transglutaminase Ab IgG 08/26/23 R10.9 Transglutaminase IgA 08/26/23 R10.9 TSH reflex Free T4 08/26/23 K59.00 Vitamin D 25-OH (D2 and D3) 08/26/23 E55.9 Lipase 08/26/23 R10.9 Vitamin B12 and Folate 08/26/23 R19.7 Medications New famotidine (Pepcid) 20 mg PO BEDTIME 30 tabs 3RF K21.9 TODAY'S VISIT Patient is here today for follow-up and to discuss going for colonoscopy and upper endoscopy. Patient reports that his symptoms are better now. He is taking pantoprazole in the morning and famotidine at bedtime. His symptoms are suppressed for the most part. All his blood work came back negative to for any acute processes except low vitamin-D level which he started taking back in August. Patient reports that he is moving his bowels well without any issues. Will send a message to ENGINE WATCHMAN in cardiology about clearance. Patient had stress test done and was seen by his family psychologist. We assume that he will be cleared with risk stratification low as his stress test was negative. Patient denies any cardiac or respiratory symptoms. No issues with anesthesia in the past. Patient is on low-dose aspirin. [facility] Medical History Vitamin D deficiency Cardiomyopathy Congestive heart failure Hyperlipidemia Surgical History History of thoracentesis Family History Mother Heart problem Social History Housing: Apartment Patient Tobacco Use Status: Former Tobacco user e-Cigarette/Vaping Use: Never Used service: No Current occupational status: retired Cognitive needs: No Hearing needs: No Vision needs: Yes Review of Systems Const Denies weight gain and Denies weight loss ENT Reports no additional complaints, Denies dysphagia and Denies odynophagia Card Reports no additional complaints Resp Reports no additional complaints GI Denies abdominal pain, Denies belching, Denies melena, Denies bloating, Denies change in bowel habits, Denies dysphagia, Denies excessive flatus, Denies dyspepsia, Denies heartburn, Denies diarrhea, Denies loose stools, Denies nausea, Denies odynophagia and Denies vomiting Reports no additional complaints Musc Reports no additional complaints Neuro Reports no additional complaints Psych Reports no additional complaints Endo Reports no additional complaints Physical Exam Vital Signs: Last Vital Signs Pulse 62 11/14/23 08:31 BP 112/68 11/14/23 08:31 Pulse Ox 99 11/14/23 08:31 Oxygen Delivery Method Room Air 11/14/23 08:31 BMI result Body Mass Index 26.7 Const General: healthy appearing, no acute distress and well developed Nutritional Appearance: well nourished Orientation/consciousness: patient oriented x3 Resp Effort & Inspection: normal respiratory effort, able to speak in complete sentences, no tracheal deviation and symmetric chest movement Auscultation: clear to auscultation bilaterally Cardio Rate: regular rate GI Inspection: Yes normal to inspection and No distended Palpation (GI): Soft to palpation, not firm, nontender and No hepatosplenomegaly present Auscultation: normal bowel sounds General: Yes no CVA tenderness Back/Spine/Pelvis Back: no CVA tenderness Skin General skin exam: elasticity normal, turgor normal and dry skin Neuro General: patient oriented x3 Psych Appearance: grossly normal Mental Status: mental status grossly normal Results Reviewed Results Reviewed: Laboratory Tests 08/26/23 09/03/23 15:27 11:48 Hgb A1c (Clinic) 6.9 H Lipase 19 Vitamin B12 706 25-OH Vitamin D Total 20 L Folate > 20.0 Tiss Transglutamin IgG <1.0 Tiss Transglutamin IgA <1.0 Assessment & Plan Assessment & Plan (1) Vitamin D deficiency: Code(s): E55.9 - Vitamin D deficiency, unspecified Category: Medical (2) GERD (gastroesophageal reflux disease): Code(s): K21.9 - Gastro-esophageal reflux disease without esophagitis Category: Medical Qualifiers: Esophagitis presence: esophagitis presence not specified Qualified Code(s): K21.9 - Gastro-esophageal reflux disease without esophagitis (3) Postprandial abdominal bloating: Code(s): R14.0 - Abdominal distension (gaseous) (4) Postprandial epigastric pain: Code(s): R10.13 - Epigastric pain (5) Screen for colon cancer: Code(s): Z12.11 - Encounter for screening for malignant neoplasm of colon Plan Continue pantoprazole and famotidine. Avoid dietary triggers and late night snacking. Patient will be sent for upper endoscopy to rule out gastritis, duodenitis, esophagitis, Mckeon's. Message sent to ENGINE WATCHMAN as mentioned above in HPI about risk stratification before going for procedure. What to expect before during and after procedure discussed with patient. Stressed the importance of good bowel prep and clear liquid diet day before procedure. I will see patient after the procedure, sooner on as needed basis. He is agreeable to this plan and verbalizes understanding of instructions. He was given the opportunity to ask questions and all questions answered. Thank you for allowing me to participate in his care Medications: New bisacodyl (Dulcolax (bisacodyl)) take 4 tabs at noon the day before your colonoscopy 20 mg (4 x 5 mg) PO ONCE 4 tabs 0RF 1 day Z12.11 - Encounter for screening for malignant neoplasm of colon polyethylene glycol 3350 (Miralax) As directed by gastroenterology department at [facility] 238 grams PO ONCE 238 grams 0RF Z12.11 - Encounter for screening for malignant neoplasm of colon Coding Level of Care Code Est Pt Level 3 (65994) Diagnoses Vitamin D deficiency E55.9 Gastroesophageal reflux disease, unspecified whether esophagitis present K21.9 Esophagitis presence: esophagitis presence not specified Postprandial abdominal bloating R14.0 Postprandial epigastric pain R10.13 Screen for colon cancer Z12.11 Time Spent (min) 30 Comment 20 minutes spent with patient and additional 10 minutes spent reviewing his records
== END 2023-11-14 09:30 | disposition home or self-care (01) ==
PROVIDERS: PCP Nurse Practitioner Primary Care; Visit Provider Nurse Practitioner Family
DX: E55.9 Vitamin D deficiency, unspecified (principal); K21.9 Gastro-esophageal reflux disease without esophagitis; R14.0 Abdominal distension (gaseous); R10.13 Epigastric pain; Z12.11 Encounter for screening for malignant neoplasm of colon
CPT/HCPCS: 99213

== ENCOUNTER → 2023-11-14 08:28 | Outpatient (BNVA) | payer OTHER, SELFPAY | PROVIDERS: PCP Nurse Practitioner Primary Care; Visit Provider Nurse Practitioner Family | DX: Z01.818 Encounter for other preprocedural examination (principal); K21.9 Gastro-esophageal reflux disease without esophagitis; E55.9 Vitamin D deficiency, unspecified; R14.0 Abdominal distension (gaseous); R10.13 Epigastric pain; Z79.82 Long term (current) use of aspirin | CPT/HCPCS: 99212 ==

== ENCOUNTER 2023-11-18 08:37 | Outpatient (REF) | payer OTHER, SELFPAY ==
[2023-11-21 16:12] LABS: TS Negative Control Passed; TS Panel A 0; TS Panel B 0; TS Positive Control Passed; TSpotTB Negative (Negative)
== END 2023-11-18 08:38 | disposition home or self-care (01) ==
LOC: HO.HMGCLDS 08:37
PROVIDERS: PCP Internal Medicine; Visit Provider Internal Medicine
DX: Z11.1 Encounter for screening for respiratory tuberculosis (principal)
CPT/HCPCS: 36415; 86481

== ENCOUNTER 2023-12-06 08:53 | Outpatient (REF) | payer OTHER, SELFPAY ==
[2023-12-06 11:23] LABS: Estimated Average Glucose 137 mg/dL; Hemoglobin A1C 167.9962 umol/L; Hemoglobin A1c % 6.4 % (<6.0); Total Hemoglobin (HGBA1C) 3611.0848 umol/L
[2023-12-06 11:27] LABS: Appearance Urine Clear; Color Urine Yellow; Glucose Urine UA >=1000 mg/dL (Negative); Leukocyte Esterase Urine Negative (Negative); Nitrite Urine Negative (Negative); Specific Gravity - Urine 1.025 (1.005-1.025); UMIC TRIGGER UACC YES; Urine Blood Negative (Negative); Urine Ketones Negative (Negative); Urine Protein Negative (Neg-Trace)
[2023-12-06 11:34] LABS: Alanine Aminotransferase 15 U/L (0-40); Aspartate Amino Transferase 18 U/L (5-37); Cholesterol 129 mg/dL (<200); HDL Cholesterol 50 mg/dL (>40); LDL Cholesterol Calculated 59 mg/dL (<100); Triglycerides 103 mg/dL (<150)
[2023-12-06 11:35] LABS: Bacteria Urine None Seen (None Seen); Hyaline Casts Urine 0-2 /LPF (0-2); RBC Urine 0-2 /HPF (0-2); Squamous Epithelial Cell Urine 0-2 /HPF (0-2); WBC Urine 0-5 /HPF (0-5)
[2023-12-06 11:52] LABS: Vitamin D 25-OH Total 65.4 ng/mL (>30)
== END 2023-12-06 08:54 | disposition home or self-care (01) ==
LOC: HO.HMGCLDS 08:53
PROVIDERS: Nurse Practitioner Primary Care; PCP Internal Medicine; Visit Provider Internal Medicine
DX: E11.9 Type 2 diabetes mellitus without complications (principal); E78.5 Hyperlipidemia, unspecified; E55.9 Vitamin D deficiency, unspecified
CPT/HCPCS: 36415; 80061; 81001; 81003; 82306; 83036; 84450; 84460

== ENCOUNTER 2023-12-11 12:52 | Outpatient (AMB) | payer OTHER, SELFPAY ==
--- NOTE | 2023-12-11 13:00 | MHC.PC.OV ---
Vital Signs 12/11/23 13:01 Height 5 ft 11 in Weight 193 lb BMI 26.9 BP 120/84 Blood Pressure Location Lt brachial Position Sitting Pulse 65 Pulse Source Pulse Oximeter Pulse Oximetry (%) 97 Oxygen Delivery Method Room Air Intake Visit Reasons: Transfer from [facility]/Requesting Annual PE Intake Note: Patient here for physical exam. Allergies metformin Adverse Reaction (Intermediate, Verified 12/11/23 13:09) Headache Medication List - Last Reconciled 12/11/23 by Digna Dykes MD alcohol swabs (Alcohol Wipes) 1 pad topical BID aspirin 81 mg PO DAILY atorvastatin 40 mg PO DAILY bisacodyl (Dulcolax (bisacodyl)) 20 mg (4 x 5 mg) PO ONCE 1 day blood pressure test kit-large As directed blood sugar diagnostic (FreeStyle Lite Strips) Test blood sugar once a day blood-glucose meter (FreeStyle Lite Meter kit) As directed cholecalciferol (vitamin D3) 50 mcg PO DAILY diclofenac sodium 1% 2 grams topical QID PRN empagliflozin (Jardiance) 10 mg PO DAILY empagliflozin (Jardiance) 10 mg PO DAILY famotidine (Pepcid) 20 mg PO BEDTIME folic acid 1 mg PO DAILY folic acid 1 mg PO DAILY hydroxyzine HCl 25 mg PO BEDTIME PRN lancets (Easy Touch Twist Lancets) As directed metoprolol tartrate 50 mg PO DAILY pantoprazole 20 mg PO DAILY polyethylene glycol 3350 (Miralax) 238 grams PO ONCE sacubitril-valsartan 24-26 mg (Entresto) 1 tab PO BID simethicone mg PO DAILY Tobacco use date assessed: 09/03/23 Dental Screening Dental Screen Date: 07/31/23 HPI Transfer from [facility]/Requesting Annual PE HPI Details 63-year-old male with past medical history of hyperlipidemia, Congestive heart failure, currently followed by cardiology, has history of diabetes mellitus, hyperlipidemia, and GERD here to establish care with a new PCP and for physical exam. He is scheduled for a screening colonoscopy and EGD next week with [facility]. Has an appointment for his diabetes retinopathy check with Dr. Sherman scheduled for later this year. Had recent fasting labs done which showed diabetes mellitus and lipids well controlled. [facility] Medical History (Updated 12/11/23 @ 13:25 by Digna Dykes MD) Vitamin D deficiency Cardiomyopathy Congestive heart failure Hyperlipidemia Surgical History History of thoracentesis Family History Mother Heart problem Social History Housing: Apartment Patient Tobacco Use Status: Former Tobacco user e-Cigarette/Vaping Use: Never Used service: No Current occupational status: retired Cognitive needs: No Hearing needs: No Vision needs: Yes Questionnaire PHQ-9 Over the last 2 weeks, how often have you been bothered by any of the following problems? 90296 - PHQ-9 Billing: Patient declined-do not bill Source: Developed by Drs. Romaine Ernst, Bibi Fitzpatrick, Baltazar Law and colleagues, with an educational alexandro from [employer]. Thrive Questionnaire Date Thrive assessed: 07/31/23 I am a: Patient What is your living situation today?: I do not have a steady places to live I am temporarily staying with others Within the past 12 months, did the food you bought not last and you didn't have the money to get more?: Often true Within the past 12 months, did you worry whether your food would run out before you got money to buy more?: Sometimes True Do you have trouble paying for medicines?: Yes Do you have trouble getting transportation to medical appointments?: Yes Do you have trouble paying your heating and electricity bill?: I choose not to answer this question Do you have trouble taking care of your child, family member or friend?: Yes Do you have trouble with day-to-day activities such as bathing, preparing meals, shopping, managing finances, etc.?: Yes Are you currently unemployed and looking for a job?: No Are you interested in more education?: No Please select the resources that you would like help with: Housing/Intermediate, Food and Paying for medicine Currently or been in a relationship where the following occur: Controlled Emotionally THRIVE Score: 5 AUDIT C Alcohol Use Questionnaire (AUDIT-C) 1. How often do you have a drink containing alcohol?: Never Total Score: 0 Review of Systems Const Denies chills, Denies fatigue, Denies fever(s), Denies weight gain and Denies weight loss Eyes Details: Has an appointment to see Dr. Sherman later this year for his retinopathy screening ENT Denies dizziness Card Denies chest pain, Denies leg edema, Denies lightheadedness, Denies palpitations, Denies dyspnea on exertion, Denies orthopnea and Denies other Resp Denies cough and Denies dyspnea on exertion GI Denies hematochezia and Denies change in stool character Reports no additional complaints Musc Denies abnormal gait, Denies muscle weakness, Denies numbness, Denies radiating pain into limb and Denies tingling Skin/Breast Denies breast mass, Denies lesions and Denies rash Neuro Denies abnormal gait, Denies dizziness, Denies numbness and Denies tingling Psych Reports no additional complaints Endo Denies fatigue and Denies palpitations Fredy/Lymph Reports no additional complaints Aller/Immun Reports no additional complaints Physical exam (Primary Care) Vital Signs: Last Vital Signs Pulse 65 12/11/23 13:01 BP 120/84 12/11/23 13:01 Pulse Ox 97 12/11/23 13:01 Oxygen Delivery Method Room Air 12/11/23 13:01 BMI result Body Mass Index 26.9 Tobacco/Smoking Status: Tobacco use Status Tobacco use date assessed 09/03/23 12/11/23 13:03 Patient Tobacco Use Status Former Tobacco user 12/11/23 13:03 e-Cigarette/Vaping Use Never Used 12/11/23 13:03 PHQ-9: PHQ-9 Score PHQ-9: Total score 7 12/11/23 13:13 Thrive Assessment: Date of Thrive Assessment Date Thrive assessed 07/31/23 12/11/23 13:03 Currently or been in a relationship where the following occur: Controlled Emotionally Const General: cooperative and no acute distress Nutritional Appearance: average body habitus Orientation/consciousness: patient oriented x3 HENMT Head: Yes normal to inspection Eyes General: appearance normal, both eyes and all related structures Sclerae: sclerae normal Pupils: Equal, round and reactive pupils present Neck Neck: Yes normal visual inspection Chest Chest palpation & inspection: normal inspection of the chest Resp Effort & Inspection: normal respiratory effort Auscultation: clear to auscultation bilaterally Cardio Rate: regular rate Rhythm: regular rhythm Heart sounds: S1 normal heart sound present and S2 normal heart sound present GI Inspection: Yes normal to inspection Palpation (GI): Soft to palpation and no masses Auscultation: normal bowel sounds General: Yes no CVA tenderness Male General Exam: Yes normal external exam Back/Spine/Pelvis Back: no CVA tenderness and No back tenderness Skin General skin exam: no rashes or lesions noted Neuro General: patient oriented x3, gait normal, tone normal, moves all extremities, Normal light touch and pain sensation, no focal motor deficits, CN's II-XI intact bilaterally, normal sensation to monofilament and deep tendon reflexes 2+ bilaterally Cranial nerves: Yes Equal, round and reactive pupils present Gait exam (Neuro): Normal gait present Extrem General: Yes normal to inspection, Yes full ROM, Yes no joint enlargement, Yes no clubbing, cyanosis or edema, Yes no calf tenderness and Yes normal gait Psych Thought process: Normal thought process present Office Procedures Flu Questionnaire Does the patient have a severe egg allergy?: No Does the patient have severe life threatening allergies?: No Does the patient have a fever or illness today?: No Has the patient ever had Guillain-[place] Syndrome?: No Has the patient ever had any past reaction to a flu shot?: No Immunizations Fluarix Triv [id number] (PF) 45 mcg (15 mcg x 3)/0.5 mL IM syringe Performing Provider: Digna Dykes MD Performing Location: [facility] Administered by: Eddie Ventura CMA on 12/11/23 13:24 Dose Route Admin Location Dispensed Lot Number Expiration Date [facility] Linux Systems Engineer 0.5 mL IM Left Deltoid 0.5 mL [id number] 08/23/24 [id number] [employer] VIS Given Date VIS Provided VIS Publication Date 12/11/23 Single Vaccine 20 Eligibility Eligibility Date Funding Source Not [facility] Eligible 12/11/23 Private Results Reviewed Results Reviewed: Name: Dontrell Way Age/Sex: 63/M : 1960 Unit#: [id number] Attend Dr: Digna Dykes MD Re12/06/23 Status: DEP REF Location: [facility] Disch: SPEC : [id number] CATERINA: 12/06/23 STATUS: COMP REQ : [id number] RECD: 12/06/[address]: Digna Dykes MD COMP: 12/06/23 ENTERED: 12/06/[address] [facility] [address]: ORDERED: Hgb A1c Test Result Flag Reference A1c % 6.4 H <6.0 % Hemoglobin A1C Reference Range Adults: 4.8 - 6.0 % Non diabetic: < 6.0 % Goal: < 7.0 % Additional Action Suggested: > 8.0 % Note: Hemoglobin A1c results are invalid for patients with abnormal amounts of HbF. Blood transfusions may impact the HbA1c concentration in the patient sample. Est. Avg. Gluc 137 mg/dL eAG = Estimated average glucose which is %A1C expressed as average glucose, using the formula of the L0M-Gsbjhma Average Glucose study (ADAG), Diabetes Care, Vol.31,#8, 2007 Name: Dontrell Way Age/Sex: 63/M : 1960 Unit#: [id number] Attend Dr: Digna Dykes MD Re12/06/23 Status: DEP REF Location: [facility] Disch: SPEC : [id number] CATERINA: 12/06/23 STATUS: COMP REQ : [id number] RECD: 12/06/[address]: Digna Dykes MD COMP: 12/06/23 ENTERED: 12/06/[address] [facility] [address]: ORDERED: AST, ALT, Lipid Panel, Vitamin D 25-OH Test Result Flag Reference AST (GOT) 18 5-37 U/L ALT (GPT) 15 0-40 U/L Triglyceride 103 <150 mg/dL Desirable Triglyceride: less than 150 mg/dL Borderline High Triglyceride 150-199 mg/dL High Triglyceride: 200-499 mg/dL Very High Triglyceride: greater than or equal to 5OO mg/dL Cholesterol 129 <200 mg/dL Desirable Cholesterol: less than 200 mg/dL Borderline High Cholesterol: 200-239 mg/dL High Cholesterol: greater than 239 mg/dL LDL Calculated 59 <100 mg/dL Desirable LDL: less than 100 mg/dL Near Optimal/Above Optimal LDL: 110-129 mg/dL Borderline High LDL: 130-159 mg/dL High LDL: 160-189 mg/dL Very High LDL: greater than or equal to 190 mg/dL HDL 50 >40 mg/dL Desirable HDL: greater than 40 mg/dL Note: This HDL assay may give artificially low results in patients with liver disease. Vit D 25-OH Tot 65.4 >30 ng/mL Health Based Reference Values* < 20 ng/mL Deficient 20-30 ng/mL Insufficient > 30 ng/mL Sufficient *Kathy WINKLER. N Engl J Med. 2007;[id number]:266-280 Care must be taken in interpreting Vitamin D results from different laboratories and methodologies. Published data demonstrated that results from patients undergoing hemodialysis may show a negative bias when tested with various automated 25-OH vitamin D assays when compared to LC-MS/MS. When testing samples from patients whose predominant form of Vitamin D is Vitamin D2, such as patients receiving Vitamin D2 supplementation, results that are subtherapeutic should be confirmed with another method such as LC-MS/MS. Coding Level of Care Code Est Pt Prev Care 40-64y(53987) Diagnoses Annual visit for general adult medical examination with abnormal findings Z00. 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 Continued on current medication. Has an appointment already scheduled for his upper endoscopy and colonoscopy screening later this year flu shot given today. Declined COVID vaccine booster and declined getting shingles vaccination. (2) Depression: Comment: Patient has started therapy with good effect. Denies SI/HI. Patient utilizes hydroxyzine at night for insomnia secondary to anxiety and depression. Code(s): F32.A - Depression, unspecified Category: Medical Qualifiers: Depression Type: unspecified Qualified Code(s): F32.A - Depression, unspecified Plan: Takes hydroxyzine as needed for insomnia which has been helping (3) GERD (gastroesophageal reflux disease): Code(s): K21.9 - Gastro-esophageal reflux disease without esophagitis Category: Medical Qualifiers: Esophagitis presence: esophagitis presence not specified Qualified Code(s): K21.9 - Gastro-esophageal reflux disease without esophagitis Plan: Takes pantoprazole in the morning and famotidine at night. Has an appointment for an upper endoscopy screening done at [facility] later this month (4) Hyperlipidemia: Code(s): E78.5 - Hyperlipidemia, unspecified Category: Medical Plan: Fasting lipids are within normal limits, continue with atorvastatin 40 mg daily. (5) Congestive heart failure: Code(s): I50.9 - Heart failure, unspecified Category: Medical Plan: She has recently seen and followed by cardiology, currently on Entresto (6) Diabetes type 2, controlled: Comment: Patient had A1c drawn in office. He should continue to watch his diet which he has been doing a good job of, and continue to take his medication as directed. He should continue to take blood sugar levels at home. Discussed with patient the potential to titrate up Jardiance and future appointments. 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 Continue with empagliflozin 10 mg once a day continue to check fasting blood sugar at home, maintain log and bring to next appointment for review. Reinforced diabetic diet and regular exercise with patient. Up-to-date with yearly diabetes retinopathy screening, currently sees Dr. Sherman.. Patient advised to inspect feet daily, for any signs of injury, callus or infection. Compliance with diet and regular exercise again stressed. Blood pressure goal is less than 130/80, goal LDL is less than 100 and goal hemoglobin A1c is less than 7% follow-up appointment made in--6-months, after fasting labs done. (7) Heart failure with recovered ejection fraction (HFrecEF): Code(s): I50.32 - Chronic diastolic (congestive) heart failure Category: Medical Plan: Currently on Entresto (8) Cardiomyopathy: Code(s): I42.9 - Cardiomyopathy, unspecified Category: Medical Plan: Followed by cardiology on Entresto Orders: Orders Influenza [id number] Immunization Today Z23 - Encounter for immunization Microalbumin, Random (w Creat) 05/29/24 E11.9 - Type 2 diabetes mellitus without complications, E78.5 - Hyperlipidemia, unspecified, I42.9 - Cardiomyopathy, unspecified, I50.32 - Chronic diastolic (congestive) heart failure, I50.9 - Heart failure, unspecified, K21.9 - Gastro-esophageal reflux disease without esophagitis Hemoglobin A1c 05/29/24 E11.9 - Type 2 diabetes mellitus without complications, E78.5 - Hyperlipidemia, unspecified, I42.9 - Cardiomyopathy, unspecified, I50.32 - Chronic diastolic (congestive) heart failure, I50.9 - Heart failure, unspecified, K21.9 - Gastro-esophageal reflux disease without esophagitis PSA,Total (Free>4and<10) 05/29/24 E11.9 - Type 2 diabetes mellitus without complications, E78.5 - Hyperlipidemia, unspecified, I42.9 - Cardiomyopathy, unspecified, I50.32 - Chronic diastolic (congestive) heart failure, I50.9 - Heart failure, unspecified, K21.9 - Gastro-esophageal reflux disease without esophagitis Lipid Panel 05/29/24 E11.9 - Type 2 diabetes mellitus without complications, E78.5 - Hyperlipidemia, unspecified, I42.9 - Cardiomyopathy, unspecified, I50.32 - Chronic diastolic (congestive) heart failure, I50.9 - Heart failure, unspecified, K21.9 - Gastro-esophageal reflux disease without esophagitis Basic Metabolic Panel Fasting 05/29/24 E11.9 - Type 2 diabetes mellitus without complications, E78.5 - Hyperlipidemia, unspecified, I42.9 - Cardiomyopathy, unspecified, I50.32 - Chronic diastolic (congestive) heart failure, I50.9 - Heart failure, unspecified, K21.9 - Gastro-esophageal reflux disease without esophagitis Aspartate Amino Transferase 05/29/24 E11.9 - Type 2 diabetes mellitus without complications, E78.5 - Hyperlipidemia, unspecified, I42.9 - Cardiomyopathy, unspecified, I50.32 - Chronic diastolic (congestive) heart failure, I50.9 - Heart failure, unspecified, K21.9 - Gastro-esophageal reflux disease without esophagitis Alanine Aminotransferase 05/29/24 E11.9 - Type 2 diabetes mellitus without complications, E78.5 - Hyperlipidemia, unspecified, I42.9 - Cardiomyopathy, unspecified, I50.32 - Chronic diastolic (congestive) heart failure, I50.9 - Heart failure, unspecified, K21.9 - Gastro-esophageal reflux disease without esophagitis Vitamin D 25-OH Total 05/29/24 E11.9 - Type 2 diabetes mellitus without complications, E78.5 - Hyperlipidemia, unspecified, I42.9 - Cardiomyopathy, unspecified, I50.32 - Chronic diastolic (congestive) heart failure, I50.9 - Heart failure, unspecified, K21.9 - Gastro-esophageal reflux disease without esophagitis Medications: Refilled pantoprazole 20 mg PO DAILY 30 tabs 0RF
[2023-12-11 13:01] VITALS: BP 120/84; PULSE 65; O2SAT 97; BMI 26.9
== END 2023-12-11 14:25 | disposition home or self-care (01) ==
PROVIDERS: PCP Nurse Practitioner Primary Care; Visit Provider Internal Medicine
DX: Z00.00 Encounter for general adult medical examination without abnormal findings (principal); I50.9 Heart failure, unspecified; E11.69 Type 2 diabetes mellitus with other specified complication; I50.32 Chronic diastolic (congestive) heart failure; I42.9 Cardiomyopathy, unspecified; F32.A Depression, unspecified; K21.9 Gastro-esophageal reflux disease without esophagitis; E78.5 Hyperlipidemia, unspecified

== ENCOUNTER → 2023-12-11 12:52 | Outpatient (BNVA) | payer OTHER, SELFPAY | PROVIDERS: PCP Nurse Practitioner Primary Care; Visit Provider Internal Medicine | DX: Z00.01 Encounter for general adult medical examination with abnormal findings (principal); F32.A Depression, unspecified; K21.9 Gastro-esophageal reflux disease without esophagitis; E78.5 Hyperlipidemia, unspecified; I50.32 Chronic diastolic (congestive) heart failure; I42.9 Cardiomyopathy, unspecified; E11.9 Type 2 diabetes mellitus without complications; Z79.899 Other long term (current) drug therapy; Z23 Encounter for immunization | CPT/HCPCS: 90471; 90656; 99396 ==

== ENCOUNTER 2024-01-15 10:56 | Day surgery (SDC) | payer OTHER, SELFPAY ==
[2024-01-13 13:43] VITALS: BMI 26.6
--- NOTE | 2024-01-14 10:59 | HO.ANESPROP2 ---
Documented by User: Laura Hagen NP 01/14/24 11:02 HPI - Anesthesia Eval Consult details Narrative: 63yo M for Upper Endoscopy and Colonoscopy Follows [facility] Cardiology for Nonischemic CMP. Optimized to proceed with EGD/[place]. Last office visit 10/2023 COUNTS INCLUDE 234 BEDS AT [facility] Active Problems Active Problems: All Active Problems Ascending aorta enlargement (Acute) Heart failure with recovered ejection fraction (HFrecEF) (Acute) Cardiomyopathy (Acute) Insomnia (Acute) Depression (Acute) Bunion, right foot (Acute) GERD (gastroesophageal reflux disease) (Acute) Hyperlipidemia (Acute) Congestive heart failure (Acute) Diabetes type 2, controlled (Acute) Past Medical History Medical History Vitamin D deficiency Cardiomyopathy Congestive heart failure Hyperlipidemia Family History Family History Mother Heart problem Surgical History Surgical History History of thoracentesis Social History Social History Household Members Other:: brother Housing: Apartment Are you a primary pharmacy care coordinator to a significant other at home: No Do you presently have visiting nurse or other home services: No Patient Tobacco Use Status: Former Tobacco user e-Cigarette/Vaping Use: Never Used service: No Current occupational status: retired Cognitive needs: No Hearing needs: No Vision needs: Yes Meds Allergies Allergy/AdvReac Type Severity Reaction Status Date / Time metformin AdvReac Intermediate Headache Verified 01/28/24 08:25 Home Medications ?Medication ?Instructions ?Recorded ?Confirmed ?Last Taken ?Type aspirin 81 mg tablet,delayed 81 mg PO DAILY 11/03/23 01/15/24 Unknown History release lancets 33 gauge (Easy Touch Twist #100 ea 11/14/23 12/11/23 Unknown History Lancets) simethicone 180 mg capsule mg PO DAILY 11/14/23 12/11/23 Unknown History empagliflozin 25 mg tablet 25 mg PO DAILY 01/28/24 Unknown History (Jardiance) Exam Height,Weight and Vital Signs: Height 5 ft 11 in Weight 86.636 kg Pertinent Lab Results Pertinent Lab Results: Laboratory Tests 07/31/23 11:25 WBC 4.3 L Hgb 14.1 Hct 44.0 Plt Count 223 Sodium 144 Potassium 4.2 Chloride 105 Carbon Dioxide 29 BUN 9 Creatinine 1.12 Narrative Narrative: ECHO 05/2023 Conclusions: - 1. Low normal LV ejection fraction 50-55% with impaired relaxation filling pattern with underlying regional wall motion abnormality consistent with coronary artery disease 2. Normal cardiac valvular Doppler 3. Normal RV systolic pressure 4. Mildly dilated ascending aorta 5. No gross pericardial effusion NM cardiolite stress test 08/2023 IMPRESSION: 1. Myocardial perfusion imaging study shows fixed inferior perfusion defect that could indicate a prior infarction. Cannot exclude components of diaphragmatic attenuation artifact. 2. Gated LVEF is 62% during stress. Visually normal during rest. 3. Transient ischemic dilatation not present. EKG component of the test reported separately. EKG 04/2023 Details: EKG with sinus rhythm at 63/Min; can not exclude old septal infarct; PVCs Assessment and Plan Assessment Anesthesia Assessment: Chart Reviewed Documented by User: Nakul Godoy MD 01/28/24 17:05 COUNTS INCLUDE 234 BEDS AT [facility] Past Medical History Medical History Vitamin D deficiency Cardiomyopathy Congestive heart failure Hyperlipidemia Family History Family History Mother Heart problem Family history of problems with anesthesia: No Surgical History Surgical History History of thoracentesis History of Problems with Anesthesia: No Social History Social History Household Members Other:: brother Housing: Apartment Are you a primary pharmacy care coordinator to a significant other at home: No Do you presently have visiting nurse or other home services: No Patient Tobacco Use Status: Former Tobacco user e-Cigarette/Vaping Use: Never Used service: No Current occupational status: retired Cognitive needs: No Hearing needs: No Vision needs: Yes Meds Allergies Allergy/AdvReac Type Severity Reaction Status Date / Time metformin AdvReac Intermediate Headache Verified 01/28/24 08:25 Home Medications ?Medication ?Instructions ?Recorded ?Confirmed ?Last Taken ?Type aspirin 81 mg tablet,delayed 81 mg PO DAILY 11/03/23 01/15/24 Unknown History release lancets 33 gauge (Easy Touch Twist #100 ea 11/14/23 12/11/23 Unknown History Lancets) simethicone 180 mg capsule mg PO DAILY 11/14/23 12/11/23 Unknown History empagliflozin 25 mg tablet 25 mg PO DAILY 01/28/24 Unknown History (Jardiance) Exam Airway Mallampati Class: II TM Dist: >3cm Neck ROM: Full Partial: Upper Heart: ok. see above. Lungs: ok Assessment and Plan Assessment Anesthesia Assessment: Anesthesia Plan Discussed Final Anesthetic Review Family History of Problems with Anesthesia: No History of Problems with Anesthesia: No NPO: Yes ASA Class: III Final Preanesthetic Review: No Changes in Pt Med Stat, Meds/Allgs Chart Reviewed, Consent Obtained/Reviewed and Anes Risks/Benef Reviewed Patient Risk: Intermediate Procedure Risk: Intermediate Anesthetic Plan Anesthetic Plan: Agree w/ Assess. and Plan and TIVA Disposition: Standard PACU
--- NOTE | 2024-01-15 11:30 | MHC.SHP ---
Pre-Procedural Eval Section A - 24 Hr Update-Section A only Date of Service: 01/15/24 Section B - Complete if H&P > 30 days Chief Complaint: Gastro-esophageal reflux disease without esophagit Details of Present Illness: colon screen Relevant Family History (Specify if Yes): No Relevant Social History: None Present Medications: see Short Stay Collaborative assessment Medical History: Significant History (Vitamin D deficiency Cardiomyopathy Congestive heart failure Hyperlipidemia) History of Previous Operations: Relevant previous surgery/procedure and date(s) (History of thoracentesis) Allergies: Allergies Allergy/AdvReac Type Severity Reaction Status Date / Time metformin AdvReac Intermediate Headache Verified 12/11/23 13:09 Review of Systems Sugical H&P ROS: Negative: Constitution, Cardiovascular, Respiratory, Neurological, Psychiatric, Hem-Onc, Allergic/Immunologic, Gastrointestinal, Genitourinary, Musculoskeletal, Integumentary, Endocrine and Eyes/Ears/Nose/Throat Exam Surgical H&P Exam: Normal: HEENT, Normal: Heart, Normal: Lungs, Normal: Extremities, Normal: Abdomen, Normal: Skin and Normal: Neurological Plan Diagnosis/Plan: Unchanged I have reviewed the history and physical and performed a pertinent physical examination on my patient. No changes have occurred unless specified. Time Spent With Patient Time: Total time managing care of this patient today ____ minutes.
[2024-01-15 12:55] VITALS: BP 134/82; PULSE 82; RESP 18; TEMP 36.7; O2SAT 99
[2024-01-15 12:56] LABS: Glucose, Whole Blood 94 mg/dL (60-115)
--- NOTE | 2024-01-15 12:56 | PC.NURSE ---
dr. olivo aware that patient drank a cup of tea with sugar at 0900. patient denies any milk products in tea. per dr. olivo ok to proceed.
[2024-01-15] MEDS: Lactated Ringers 1,000 ML 50 ML IVCONT (12:57)
--- NOTE | 2024-01-15 14:05 | P.OPN-COLO_ITS ---
Colonoscopy Operative Note Operative Note Date of Service: 01/15/24 Narrative: Operative Information Procedure Description: EGD, Colonoscopy Indication: GERD, colon screening Anesthesia: MAC FLEXIBLE TRANSORAL UPPER GASTROINTESTINAL ENDOSCOPY AND COLONOSCOPY PROCEDURE NOTE UPPER ENDOSCOPY Consent: Indications for the procedure and potential complications of bleeding, perforation, reaction to medications and missed diagnosis were discussed with the patient and informed consent was obtained. Instrument: Olympus GIF H 190 J mid size upper endoscope Monitoring: Vital signs and clinical assessment, continuous EKG monitoring, Pulse oximetry, Carbon Dioxide monitoring and blood pressure monitoring were done throughout the procedure. Procedure: The patient was placed in the left lateral decubitis position and pre-procedure medications were administered and a bite block was placed. The endoscope was inserted into the mouth and advanced under direct vision to the third part of duodenum. A careful inspection was made as the upper endoscope was withdrawn including a retroflexed examination of the proximal stomach; Findings and interventions are described below. Findings: Larynx:normal Esophagus: GE junction at 41 cm, diaphragm hiatus at 44 cm, 3 cm sliding hiatal hernia noted, with schatzki ring, bx taken from GEJ and distal esophagus Stomach: PAtchy erythema and linear erosion with eschar noted in proximal stomach Biopsies were obtained. Grade 2 flap valve on retroflexed examination of the cardia. Duodenum: Normal bulb and descending duodenum, Intervention: Biopsies as noted above, COLONOSCOPY Instrument: Olympus variable stiffness pediatric scope 190L Colonoscopy Monitoring: Vital signs and clinical assessment, continuous EKG monitoring, Pulse oximetry, Carbon Dioxide monitoring and blood pressure monitoring were done throughout the procedure. Colon withdrawal time was 13 minutes. Procedure: The patient was placed in the left lateral decubitis position and pre-procedure medications were administered. After a digital rectal examination of the ano-rectum, the video colonoscope was inserted into the rectum and advanced through the colon to the cecum/TI. The colonoscope was slowly withdrawn in a retrograde panoramic fashion and the colon mucosa was carefully examined including a retroflexed view of the rectum. Findings and interventions are described below. Procedure Difficulty:moderate Findings: Terminal Ileum- superficially intubated, normal Cecum:normal Ascending Colon: normal Transverse Colon -normal Descending Colon:normal Sigmoid Colon: moderate diverticulosis with luminal narrowing Rectum: Retroflexion with small internal hemorrhoids, grade I Anorectum - normal Colon preparation: [place] Bowel Preparation Scale Right colon; 1-2 Transverse colon: 2 Left colon; 2 (0 = Unprepared colon segment with mucosa not seen due to solid stool that cannot be cleared. 1 = Portion of mucosa of the colon segment seen, but other areas of the colon segment not well seen due to staining, residual stool and/or opaque liquid. 2 = Minor amount of residual staining, small fragments of stool and/or opaque liquid, but mucosa of colon segment seen well. 3 = Entire mucosa of colon segment seen well with no residual staining, small fragments of stool or opaque liquid) Impression and Post Procedure Diagnosis: Endoscopy Findings: schatzki ring erosion and gastritis hiatal hernia Colonoscopy Findings: diverticulosis internal hemorrhoids Plan: Await Pathology results Repeat Colonoscopy in 3 years due to areas of fair prep or earlier if clinically indicated High fiber diet leaflet avoid straining at stool, epsom salts and sitz bath, anusol supps or cream if H pylori pos treat check nsaid hx Above findings were reviewed with the patient and relevant handouts were provided if indicated.
[2024-01-15 14:32] VITALS: BP 122/71; PULSE 95; RESP 18; TEMP 36.1; O2SAT 95
[2024-01-15 14:47] VITALS: BP 120/76; PULSE 71; RESP 18; TEMP 36.1; O2SAT 98
[2024-01-15 15:00] VITALS: BP 117/75; PULSE 76; RESP 18; TEMP 36.1; O2SAT 98
== END 2024-01-15 15:37 | disposition home or self-care (01) ==
PROVIDERS: PCP Internal Medicine; Visit Provider Internal Medicine Gastroenterology
PROC: (CPT 43239; principal; 2024-01-15 13:00)
DX: Z12.11 Encounter for screening for malignant neoplasm of colon (principal); K57.30 Diverticulosis of large intestine without perforation or abscess without bleeding; K64.0 First degree hemorrhoids; K21.9 Gastro-esophageal reflux disease without esophagitis; K22.2 Esophageal obstruction; K29.60 Other gastritis without bleeding; K44.9 Diaphragmatic hernia without obstruction or gangrene; R14.0 Abdominal distension (gaseous); E55.9 Vitamin D deficiency, unspecified; I50.9 Heart failure, unspecified; I42.9 Cardiomyopathy, unspecified; E78.5 Hyperlipidemia, unspecified; Z79.82 Long term (current) use of aspirin; Z79.899 Other long term (current) drug therapy; Z88.8 Allergy status to other drugs, medicaments and biological substances; Z87.891 Personal history of nicotine dependence
CPT/HCPCS: 43239; G0121; 82947; 88305; 88313; 88342; J2003; J2704

== ENCOUNTER → 2024-01-15 10:56 | Outpatient (BNV) | payer OTHER, SELFPAY | PROVIDERS: PCP Internal Medicine; Visit Provider Internal Medicine Gastroenterology | DX: Z12.11 Encounter for screening for malignant neoplasm of colon (principal); K57.30 Diverticulosis of large intestine without perforation or abscess without bleeding; K64.0 First degree hemorrhoids; K21.9 Gastro-esophageal reflux disease without esophagitis; K22.2 Esophageal obstruction; K29.70 Gastritis, unspecified, without bleeding | CPT/HCPCS: 43239; G0121 ==

== ENCOUNTER 2024-01-28 08:15 | Outpatient (AMB) | payer OTHER, SELFPAY ==
[2024-01-28 08:22] VITALS: BP 118/72; PULSE 86; O2SAT 98; BMI 26.9
--- NOTE | 2024-01-28 08:22 | A.OFFVIS_ITS ---
Vital Signs 01/28/24 08:22 Height 5 ft 11 in Weight 193 lb 1.999 oz BMI 26.9 BP 118/72 Blood Pressure Location Lt brachial Position Sitting Pulse 86 Pulse Source Pulse Oximeter Pulse Oximetry (%) 98 Oxygen Delivery Method Room Air Intake Visit Reasons: s/p egd/colon Intake Note: Dontrell presents in office today for a scheduled s/p double FUV. CC; Any changes or new sx since last visit? No significant changes per pt. Any labs or diagnostics since last visit? ?None s/p double w. TH Training Designer Required: Yes Training Designer Services: Training Designer Offered & Declined Allergies metformin Adverse Reaction (Intermediate, Verified 01/28/24 08:25) Headache HPI HPI s/p egd/colon: Details: LAST VISIT: Vitamin D deficiency GERD (gastroesophageal reflux disease) Postprandial abdominal bloating Postprandial epigastric pain Screen for colon cancer Plan Continue pantoprazole and famotidine. Avoid dietary triggers and late night snacking. Patient will be sent for upper endoscopy to rule out gastritis, duodenitis, esophagitis, Mckeon's. Message sent to [employer] as mentioned above in HPI about risk stratification before going for procedure. What to expect before during and after procedure discussed with patient. Stressed the importance of good bowel prep and clear liquid diet day before procedure. I will see patient after the procedure, sooner on as needed basis. He is agreeable to this plan and verbalizes understanding of instructions. He was given the opportunity to ask questions and all questions answered. ? Thank you for allowing me to participate in his care Medications New bisacodyl (Dulcolax (bisacodyl)) take 4 tabs at noon the day before your colonoscopy 20 mg (4 x 5 mg) PO ONCE 4 tabs 0RF 1 day Z12.11 polyethylene glycol 3350 (Miralax) As directed by gastroenterology department at [facility] 238 grams PO ONCE 238 grams 0RF Z12.11 UPPER ENDOSCOPY AND COLONOSCOPY: Findings: Larynx:normal Esophagus: GE junction at 41 cm, diaphragm hiatus at 44 cm, 3 cm sliding hiatal hernia noted, with schatzki ring, bx taken from GEJ and distal esophagus Stomach: PAtchy erythema and linear erosion with eschar noted in proximal stomach Biopsies were obtained. Grade 2 flap valve on retroflexed examination of the cardia. Duodenum: Normal bulb and descending duodenum, Intervention: Biopsies as noted above, COLONOSCOPY Instrument: Olympus variable stiffness pediatric scope 190L Colonoscopy Monitoring: Vital signs and clinical assessment, continuous EKG monitoring, Pulse oximetry, Carbon Dioxide monitoring and blood pressure monitoring were done throughout the procedure. Colon withdrawal time was 13 minutes. Procedure: The patient was placed in the left lateral decubitis position and pre-procedure medications were administered. After a digital rectal examination of the ano-rectum, the video colonoscope was inserted into the rectum and advanced through the colon to the cecum/TI. The colonoscope was slowly withdrawn in a retrograde panoramic fashion and the colon mucosa was carefully examined including a retroflexed view of the rectum. Findings and interventions are described below. Procedure Difficulty:moderate Findings: Terminal Ileum- superficially intubated, normal Cecum:normal Ascending Colon: normal Transverse Colon -normal Descending Colon:normal Sigmoid Colon: moderate diverticulosis with luminal narrowing Rectum: Retroflexion with small internal hemorrhoids, grade I Anorectum - normal Colon preparation: [place] Bowel Preparation Scale Right colon; 1-2 Transverse colon: 2 Left colon; 2 (0 = Unprepared colon segment with mucosa not seen due to solid stool that cannot be cleared. 1 = Portion of mucosa of the colon segment seen, but other areas of the colon segment not well seen due to staining, residual stool and/or opaque liquid. 2 = Minor amount of residual staining, small fragments of stool and/or opaque liquid, but mucosa of colon segment seen well. 3 = Entire mucosa of colon segment seen well with no residual staining, small fragments of stool or opaque liquid) Impression and Post Procedure Diagnosis: Endoscopy Findings: schatzki ring erosion and gastritis hiatal hernia Colonoscopy Findings: diverticulosis internal hemorrhoids Plan: Await Pathology results Repeat Colonoscopy in 3 years due to areas of fair prep or earlier if clinically indicated High fiber diet leaflet avoid straining at stool, epsom salts and sitz bath, anusol supps or cream if H pylori pos treat check nsaid hx PATHOLOGY RESULTS: Diagnosis A. Stomach, biopsy: Oxyntic mucosa with atrophy and moderate chronic inactive inflammation; negative for intestinal metaplasia; no Helicobacter organisms seen B. GE junction, biopsy: - Cardiofundic-type mucosa with mild chronic inactive inflammation; no intestinal metaplasia seen. - No squamous epithelium identified. C. Esophagus, distal, biopsy: Squamous epithelium within normal limits; no inflammation seen TODAY'S VISIT: Patient is here today for follow-up discuss colonoscopy and upper endoscopy results. Patient denies any ill effects from the prep, anesthesia or procedure itself. Suboptimal prep and colonoscopy was recommended to be repeated in 3 years. No H pylori found on upper endoscopy. Moderate chronic inactive inflammation the stomach and mild chronic inactive inflammation the GE junction. No intestinal metaplasia seen. Patient denies any melena, hematochezia, unintentional weight loss or ribbon like stools. Patient reports still occasional acid reflux without dyspepsia, dysphagia or odynophagia. Patient currently is taking pantoprazole in the morning and famotidine at bedtime. For the most part patient reports to be feeling well. Patient denies any family history of CRC. Occasional postprandial abdominal bloating PFSH Medical History Vitamin D deficiency Cardiomyopathy Congestive heart failure Hyperlipidemia Surgical History History of thoracentesis Family History Mother Heart problem Social History Household Members Other:: brother Housing: Apartment Are you a primary day care supervisor to a significant other at home: No Do you presently have visiting nurse or other home services: No Patient Tobacco Use Status: Former Tobacco user e-Cigarette/Vaping Use: Never Used service: No Current occupational status: retired Cognitive needs: No Hearing needs: No Vision needs: Yes Review of Systems Const Denies weight gain and Denies weight loss ENT Reports no additional complaints, Denies dysphagia and Denies odynophagia Card Reports no additional complaints Resp Reports no additional complaints GI Denies abdominal pain, Denies belching, Denies melena, Denies bloating, Denies change in bowel habits, Denies dysphagia, Denies excessive flatus, Denies dyspepsia, Reports heartburn, Denies diarrhea, Denies loose stools, Denies nausea, Denies odynophagia and Denies vomiting Reports no additional complaints Musc Reports no additional complaints Neuro Reports no additional complaints Psych Reports no additional complaints Endo Reports no additional complaints Physical Exam Vital Signs: Last Vital Signs Pulse 86 01/28/24 08:22 BP 118/72 01/28/24 08:22 Pulse Ox 98 01/28/24 08:22 Oxygen Delivery Method Room Air 01/28/24 08:22 BMI result Body Mass Index 26.9 Const General: healthy appearing, no acute distress and well developed Nutritional Appearance: well nourished Orientation/consciousness: patient oriented x3 Resp Effort & Inspection: normal respiratory effort, able to speak in complete sentences, no tracheal deviation and symmetric chest movement Auscultation: clear to auscultation bilaterally Cardio Rate: regular rate GI Inspection: Yes normal to inspection and No distended Palpation (GI): Soft to palpation, not firm, nontender and No hepatosplenomegaly present Auscultation: normal bowel sounds General: Yes no CVA tenderness Back/Spine/Pelvis Back: no CVA tenderness Skin General skin exam: elasticity normal, turgor normal and dry skin Neuro General: patient oriented x3 Psych Appearance: grossly normal Mental Status: mental status grossly normal Assessment & Plan Assessment & Plan (1) Vitamin D deficiency: Code(s): E55.9 - Vitamin D deficiency, unspecified Category: Medical (2) GERD (gastroesophageal reflux disease): Code(s): K21.9 - Gastro-esophageal reflux disease without esophagitis Category: Medical Qualifiers: Esophagitis presence: esophagitis presence not specified Qualified Code(s): K21.9 - Gastro-esophageal reflux disease without esophagitis (3) Postprandial abdominal bloating: Code(s): R14.0 - Abdominal distension (gaseous) (4) Postprandial epigastric pain: Code(s): R10.13 - Epigastric pain (5) Status post colonoscopy: Code(s): Z98.890 - Other specified postprocedural states Plan Colonoscopy in 3 years, sooner if clinically necessary patient will continue taking pantoprazole in the morning and famotidine at bedtime. Discussed with patient the importance of avoiding dietary triggers and late night snacking. Staying upright for minimum 3 hours after meals discussed with patient. Increase fluid intake and activity to promote better bowel motility. Patient will follow-up in 6 months, sooner on as needed basis. He is agreeable to this plan and verbalizes understanding of instructions. He was given the opportunity to ask questions and all questions answered. Thank you for allowing me to participate in his care Medications: Refilled famotidine (Pepcid) 20 mg PO BEDTIME 90 tabs 3RF K21.9 - Gastro-esophageal reflux disease without esophagitis pantoprazole 20 mg PO DAILY 90 tabs 2RF Coding Level of Care Code Est Pt Level 4 (61214) Complex EM visit Add On G2211 Diagnoses Vitamin D deficiency E55.9 Gastroesophageal reflux disease, unspecified whether esophagitis present K21.9 Esophagitis presence: esophagitis presence not specified Postprandial abdominal bloating R14.0 Postprandial epigastric pain R10.13 Status post colonoscopy Z98.890 Time Spent (min) 35 Comment 25 minutes spent with patient and additional 10 minutes spent reviewing his records
--- OUTSIDE RECORDS SUMMARY | 2024-02-03 16:25 | XMS_ITS ---
Author Name [facility] Organization Unknown History of Medication Use Medication Directions Dispensed Refills Start Date End Date Stat Entresto 24 mg-26 mg oral tablet, [RxNorm: 6895899] One tablet PO daily 11/06/2022 completed Entresto 24 mg-26 mg oral tablet, [RxNorm: 0397122] One tablet PO daily 12/30/2021 completed Metoprolol Tartrate 50 mg oral tablet, [RxNorm: 570486] One tablet daily 03/23/2022 co mpleted nystatin-triamcinolo ne 100,000 units/g-0.1% topical cream, [RxNorm: 0616113] Apply to affected area 3 times a day 03/23/2022 completed folic acid 1 mg oral tablet, [RxNorm: 316110] One tablet PO daily 12/30/2021 completed Metoprolol Tartrate 50 mg oral tablet, [RxNorm: 935527] Take 1 tablet by mouth once daily 07/08/2022 completed pantoprazole 40 mg oral delayed release tablet, [RxNorm: 692767] Take 1 tablet by mouth once daily 07/08/2022 completed Entresto 24 mg-26 mg oral tablet, [RxNorm: 3516572] One tablet PO daily 12/30/2021 completed Metoprolol Tartrate 50 mg oral tablet, [RxNorm: 810414] One tablet daily 03/23/2022 co mpleted Jardiance 10 mg oral tablet, [RxNorm: 5958384] Take 1 tablet by mouth once daily 03/23/2022 completed atorvastatin 40 mg oral tablet, [RxNorm: 775854] One tablet PO daily 12/30/2021 completed Metoprolol Tartrate 50 mg oral tablet, [RxNorm: 202017] Take 1 tablet by mouth once daily 12/30/2021 completed Jardiance 10 mg oral tablet, [RxNorm: 4778504] One tablet PO daily 12/30/2021 completed Problems Problem Status Onset Date Problem Type Date of Resolution Source Gastroesophageal reflux disease, unspecified whether esophagitis present active EncounterDiagnosisAct [facility] Skin rash active 2022-03-22 EncounterDiagnosisAct E[facility]_PCAH Diabetes mellitus type II active 2022-10-18 EncounterDiagnosisAct E[facility]_PC AH Congestive heart failure active 2022-10-18 EncounterDiagnosisAct ENS_PC AH Diabetes mellitus active EncounterDiagnosisAct [facility] Gastro-esophageal reflux disease active 2022-10-18 EncounterDiagnosisAct ENS_ PCAH Hypertension active 2022-10-18 EncounterDiagnosisAct ENS_PCAH Essential hypertension, malignant active EncounterDiagnosisAct [facility] Special screening for malignant neoplasms of colon active 2022-10-18 EncounterDiagnosisAct ENS_PC AH Benign prostatic hypertrophy active 2021-12-13 EncounterDiagnosisAct ENS_PC AH 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
== END 2024-01-28 09:07 | disposition home or self-care (01) ==
PROVIDERS: PCP Internal Medicine; Visit Provider Nurse Practitioner Family
DX: E55.9 Vitamin D deficiency, unspecified (principal); K21.9 Gastro-esophageal reflux disease without esophagitis; R14.0 Abdominal distension (gaseous); R10.13 Epigastric pain; Z98.890 Other specified postprocedural states
CPT/HCPCS: 99214; G2211

== ENCOUNTER → 2024-01-28 08:15 | Outpatient (BNVA) | payer OTHER, SELFPAY | PROVIDERS: PCP Internal Medicine; Visit Provider Nurse Practitioner Family | DX: K21.9 Gastro-esophageal reflux disease without esophagitis (principal); E55.9 Vitamin D deficiency, unspecified; R14.0 Abdominal distension (gaseous); R10.13 Epigastric pain; Z71.2 Person consulting for explanation of examination or test findings; Z98.890 Other specified postprocedural states; Z79.899 Other long term (current) drug therapy | CPT/HCPCS: 99212 ==

== ENCOUNTER 2024-04-28 09:38 | Outpatient (AMB) | payer OTHER, SELFPAY ==
--- NOTE | 2024-04-28 10:04 | A.OFFVIS_ITS ---
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 Required: Yes Farm Management Supervisor Services: Farm Management Supervisor Offered & Declined Allergies metformin Adverse Reaction (Intermediate, Verified 03/23/24 14:39) Headache Medication List - Last Reconciled 04/28/24 by Aramis Pedraza MD aspirin 81 mg PO DAILY atorvastatin 40 mg PO DAILY blood pressure test kit-large As directed blood sugar diagnostic (FreeStyle Lite Strips) Test blood sugar once a day blood-glucose meter (FreeStyle Lite Meter kit) As directed cholecalciferol (vitamin D3) 50 mcg PO DAILY diclofenac sodium 1% 2 grams topical QID PRN empagliflozin (Jardiance) 25 mg PO DAILY famotidine (Pepcid) 20 mg PO BEDTIME folic acid 1 mg PO DAILY hydroxyzine HCl 25 mg PO BEDTIME PRN lancets (Easy Touch Twist Lancets) As directed metoprolol tartrate 50 mg PO DAILY pantoprazole 20 mg PO DAILY sacubitril-valsartan 24-26 mg (Entresto) 1 tab PO BID simethicone mg PO DAILY HPI Comments Details: Dontrell returns for follow-up. In the past, he was seen for question of congestive heart failure. Previously living in [place] but then moved here. Since last seen, he states he feels good. No specific complaints. Echocardiogram from [place]-moderately decreased LVEF; 33%; globally reduced wall motion; concentric LVH; grade 1 diastolic dysfunction; aortic root size 4.1 cm. Myocardial perfusion imaging study, 2020 thought to have positive EKG component but normal perfusion component. Cardiac catheterization 1996, reportedly normal. Overall, state as nonischemic cardiomyopathy. [facility] Medical History Vitamin D deficiency Cardiomyopathy Congestive heart failure Hyperlipidemia Surgical History History of thoracentesis Family History Mother Heart problem Social History Household Members Other:: brother Housing: Apartment Are you a primary pet caregiver to a significant other at home: No Do you presently have visiting nurse or other home services: No Patient Tobacco Use Status: Former Tobacco user e-Cigarette/Vaping Use: Never Used service: No Current occupational status: retired Cognitive needs: No Hearing needs: No Vision needs: Yes Review of Systems Const Denies weakness ENT Denies dizziness Card Denies chest pain, Denies chest pain with activity, Denies syncope, Denies rapid heart rate, Denies pedal edema, Denies edema, Denies leg edema, Denies lightheadedness, Denies palpitations, Denies dyspnea, Denies dyspnea on exertion and Denies orthopnea Resp Denies cough, Denies dyspnea and Denies dyspnea on exertion GI Denies hematochezia and Denies change in stool character Musc Denies abnormal gait, Denies muscle cramps, Denies muscle weakness, Denies numbness, Denies radiating pain into limb and Denies tingling Neuro Denies abnormal gait, Denies dizziness, Denies syncope, Denies numbness, Denies tingling and Denies weakness Endo Denies palpitations Physical Exam Vital Signs: Last Vital Signs Pulse 58 04/28/24 10:05 BP 110/60 04/28/24 10:05 BMI result Body Mass Index 26.7 Const General: comfortable and no acute distress Orientation/consciousness: patient oriented x3 HEENT Other: Unremarkable Head: Yes normal to inspection Neck Neck: Yes normal visual inspection Chest Chest palpation & inspection: normal inspection of the chest Resp Auscultation: clear to auscultation bilaterally Cardio Palpation: normal PMI Heart sounds: S1 normal heart sound present, S2 normal heart sound present, no gallops, no murmurs and no rubs GI Palpation (GI): Soft to palpation Back/Spine/Pelvis Other: unremarkable Skin General skin exam: no rashes or lesions noted Neuro General: patient oriented x3 Extrem General: Yes normal to inspection Psych Mental Status: mental status grossly normal Office Procedures EKG Details: EKG with underlying sinus bradycardia at 58/Min; no significant ST-T changes and otherwise unremarkable[place] [id number], Complete Assessment & Plan Assessment & Plan (1) Heart failure with recovered ejection fraction (HFrecEF): Code(s): I50.32 - Chronic diastolic (congestive) heart failure Category: Medical Plan: In the past, it seems LVEF was as low in the 30s. Most recently, LVEF 50-55%. Described to have inferior wall motion abnormality. Myocardial perfusion imaging study with fixed perfusion defect, possible infarct versus diaphragmatic attenuation artifact. Overall, appears to have chronic congestive heart failure with recovered LVEF. Previously, labeled as nonischemic cardiomyopathy and possibly alcohol related. Clinically euvolemic. He remains on beta-blockers, Entresto, Jardiance. We can switch the beta-blockers to sustained release metoprolol. New script is being sent in discussed with patient. (2) Ascending aorta enlargement: Code(s): I77.89 - Other specified disorders of arteries and arterioles Category: Medical Plan: Aortic size at sinus of Valsalva-4.3 cm. Ascending aorta 3.7 cm. Minimal dilatation. Comparable to prior. We will rechecked with next visit for any increase in size. Orders: Orders CA echo transthoracic complete 1 Year I50.32 - Chronic diastolic (congestive) heart failure, I77.89 - Other specified disorders of arteries and arterioles Medications: New metoprolol succinate ER (Toprol XL) 50 mg PO DAILY 90 tabs 1RF Discontinued metoprolol tartrate Discontinued Reason: Doctor's Order 50 mg PO DAILY 90 tabs 0RF Coding Level of Care Code Est Pt Level 4 (81525) Complex EM visit Add On G2211 Diagnoses Heart failure with recovered ejection fraction (HFrecEF) I50.32 Ascending aorta enlargement I77.89 CPT Codes EKG - CPT: 05840-[id number], Complete ([id number])
[2024-04-28 10:05] VITALS: BP 110/60; PULSE 58; BMI 26.7
--- OUTSIDE RECORDS SUMMARY | 2024-04-28 10:58 | XMS_ITS | Clinical Summary ---
Author Organization [employer] Address [address] [place] [address] [address] [place] [address] Care Team Providers Care Performance Test Engineer Name Role Phone Mati Preciado MD Primary Care Prov ider Allergies Active Allergy Reactions Criticality Noted Date Comments Metformin Headache 01/20/2024 Medications Entresto 24-26 MG tablet Take 1 tablet by mouth 2 times daily. 12/29/2023 Active pantoprazole (ProtoNix) 20 MG EC tablet Take 20 mg by mouth Once per day. 12/11/2023 Active metoprolol tartrate (Lopressor) 50 MG tablet Take 50 mg by mouth Once per day. 11/28/2023 Active famotidine (Pepcid) 20 MG tablet Take 20 mg by mouth at bedtime. 12/29/2023 Active atorvastatin (Lipitor) 40 MG tablet Take 40 mg by mouth Once per day. 11/18/2023 Active cholecalciferol VITAMIN D (Vitamin D-3) 50 MCG (2000 UT) capsule Take 2,000 Units by mouth Once per day. 12/03/2023 Active aspirin 81 MG EC tablet Take 81 mg by mouth Once per day. Active empagliflozin (Jardiance) 25 MG Take 1 tablet (25 mg) by mouth Once per day. 90 tablet 3 01/20/2024 Active folic acid (Folvite) 1 MG tablet TAKE ONE TABLET BY MOUTH EVERY DAY 90 tablet 02/06/2024 Active Active Problems Problem Noted Date Diagnosed Date Encounter for medical examination to establish c are 01/20/2024 Assessment & Plan (01/20/2024 9:33 AM EST): Last pcp follow up 2 months ago ER visit in the past year:- Hospitalization: 2013 due to CHF/pulmonary edema Pmhx: Htn/DM/CHF/hyperlipidemia/Gerd Pshx:- All: metformin (causes headaches) Meds: as above Retired, used to work on a [employer] company in [place] Primary hypertension 01/20/2024 Assessment & Plan (01/20/2024 9:34 AM EST): Not monitoring frequently told to keep bp log for next appointment, keep low sodium diet and exercise as tolerated, Chronic systolic congestive heart failure 2023 Assessment & Plan (03/19/2024 1:19 PM EST): On entresto, followed by cardiology, no changes will be made Assessment & Plan (01/20/2024 9:35 AM EST): On entresto, followed by cardiology Type 2 diabetes mellitus wit hout complication, without long-term current use of insulin 01/20/2024 Assessment & Plan (03/19/2024 1:20 PM EST): On jardiance, continue low carb/no sugar diet, new labs will be ordered Assessment & Plan (01/20/2024 9:35 AM EST): On jardiance will increase dose to 25mg, follow up on office Mixed hyperlipidemia 01/20/2024 Assessment & Plan (01/20/2024 9:36 AM EST): On atorvastatin, will follow up on office on upcoming appointment Gastroesophageal reflux disease without esophagi tis 01/20/2024 Assessment & Plan (01/20/2024 9:37 AM EST): On pantoprazole, lifestyle modifications encouraged Screening for colon cancer 01/20/2024 Assessment & Plan (01/20/2024 9:38 AM EST): Colonoscopy done on 01/15/24, Encounters Date Type Department Care Team Description 03/12/2024 10:15 AM EST Office Visit [facility] [address] [place] [address] Mati Preciado MD Chronic systolic congestive heart failure ([facility]/HCC); Type 2 diabetes mellitus without complication, without long-term current use of insulin (CMS/HCC) 03/12/2024 Travel 03/11/2024 Telephone [facility] [address] [place] [address] Mati Preciado MD Chart Prep 02/05/2024 Refill [facility] [address] [place] [address] Mati Preciado MD from Last 3 Months Immunizations Name Administration Dates Next Due Influenza injectable quadrivalent preservative f ree 01/29/2023 Influenza, seasonal, injectable, preservative fr ee 12/11/2023 Family History Medical History Relation Name Comments Benign prostatic hyperplasia Father Diabetes Mother Heart disease Mother Hypertension Mother Cancer Neg Hx Relation Name Status Comments Father Mother Social History Tobacco Use Types Packs/Day Years Used Date Smoking Tobacco: Former Cigarettes 1.5 7 S tarted: 1979 Smokeless Tobacco: Never Tobacco Cessation:Counseling Given: Not Answered Alcohol Use Standard Drinks/Week Comments Never 0 (1 standard drink = 0.6 oz pur e alcohol) Depression Answer Date Recorded Patient Health Questionnaire-9 Score 0 01/20/2024 Patient Health Questionnaire-9 Score 0 01/20/2024 Last PHQ-9: Questionnaire Data Not on file 1 03/21/2023 Housing Stability Answer Date Recorded What is your housing situation today? I have tysonjason lepe 01/20/[address] you li ve. Do you have problems with any of the following? None of the above 01/20/2024 Food Insecurity Answer Date Recorded Within the past 12 months, y ou worried that your food would run out before you got money to buy more: Never True 01/20/2024 Within the past 12 months,th e food you bought just didn't last and you didn't have enough money to get more: Never True Transportation Answer Date Recorded In the past 12 months, has l ack of transportation kept you from medical appts, meetings, work or from getting things needed for daily living? No 01/20/2024 Utilities Answer Date Recorded In the past 12 months, has t he electric, gas, oil or water company threatened to shut off services in your home? No 01/20/2024 Depression Answer Date Recorded Patient Health Questionnaire-2 Score 0 01/20/2024 Internet Access Answer Date Recorded Internet Access Q1 Yes 01/20/2024 Internet Access Q2 Not on file 01/20/2024 Sex and Gender Information Value Date Recorded Sex Assigned at Male 01/08/2023 10:18 AM EST Legal Sex Male 10:17 AM EST Gender Identity Male 01/08/2023 10:18 AM EST Sexual Orientation Straight 01/20/2024 8: 10 AM EST Last Filed Vital Signs Vital Sign Reading Time Taken Comments Blood Pressure 112/64 03/12/2024 10:47 AM EST Pulse 72 03/12/2024 10:47 AM EST Temperature 36.1 ??C (96.9 ??F) 03/12/2024 10:[address] Respiratory Rate 16 03/12/2024 10:47 AM EST Oxygen Saturation - - Inhaled Oxygen Concentration - - Weight 86.2 kg (190 lb) 03/12/2024 10:47 AM EST Height 180.3 cm (5' 11 ) 03/12/2024 10:47 AM EST Body Mass Index 26.5 03/12/2024 10:47 AM EST Plan of Treatment Upcoming Encounters Date Type Department Care Team (Late st Contact Info) Description 06/21/2024 10:15 AM EDT Telemedicine [facility] [address], [place] [phone] Mati Preciado MD [address] [place], [place] [phone] Health Maintenance Due Date Last Done Comments CT Colonography 1960 Colonoscopy 1960 Colorectal Cancer Screening 1960 Diabetes: Hemoglobin A1C 1960 FIT DNA/Cologuard 1960 FIT 1960 FOBT 1960 HIV Screening 1960 Lipid Panel 1960 Sigmoidoscopy 1960 Eye Exam 02/13/1970 Alcohol/Substance Use Screening 1972 Hepatitis C Screening 02/13/1978 DTaP/Tdap/Td Vaccines (1 - Tdap) 02/13/1979 Diabetes: Urine Protein Screening 02/13/1979 Pneumococcal Vaccine: 50+ Years (1 of 2 - PCV) 02/13/1979 Zoster Vaccines (1 of 2) 02/13/2010 RSV Patients and Patients Aged 60 years or older (1 - Risk 60-74 years 1-dose series) 2020 COVID-19 Vaccine (1 - season) 2023 Depression Screening 01/19/2025 01/20/2024, 01/20/20 SDOH Screening 01/19/2025 01/20/2024 Tobacco Screening 01/19/2025 01/20/2024 Diabetes: Foot Exam 03/12/2025 03/12/2024, 03/12/2024, 03/12/2024, Additional history exists Influenza Vaccine Completed 12/11/2023, 01/29/2023 HIB Vaccines Aged Out No longer eligi ble based on patient's age to complete this topic HPV Vaccines Aged Out No longer eligi ble based on patient's age to complete this topic Hepatitis A Vaccines Aged Out No long er eligible based on patient's age to complete this topic Hepatitis B Vaccines Aged Out No long er eligible based on patient's age to complete this topic IPV Vaccines Aged Out No longer eligi ble based on patient's age to complete this topic Meningococcal Vaccine Aged Out No sandy олег eligible based on patient's age to complete this topic RSV under 20 months Aged Out No longe r eligible based on patient's age to complete this topic Rotavirus Vaccines Aged Out No longer eligible based on patient's age to complete this topic Procedures Procedure Name Priority Date/Time Associated Diagnosis Comments POCT GLUCOSE Routine 03/19/2024 1:39 PM EST Type 2 diabetes mellitus without complication, without long-term current use of insulin ([facility]) from Last 3 Months Results * POCT Glucose (03/19/2024 1:39 PM EST) Glucose Blood, POC 160 60 - 200 mg/dL QC Media Lot # [id number] Lot# Expiration Date 772 Blood Capillary blood specimen / Unknown 03/19/2024 1:39 PM EST Mati Glass MD POINT OF CARE TEST ENTER/EDIT ORDERABLES Final Result from Last 3 Months Insurance [facility] Care Teams Performance Test Engineer Relationship Specialty Start Date End Date Mati Preciado MD [address] [place] [id number] PCP - General Internal Medicine 01/20/24
== END 2024-04-28 10:25 | disposition home or self-care (01) ==
PROVIDERS: PCP Nurse Practitioner Primary Care; Visit Provider Internal Medicine
DX: I50.32 Chronic diastolic (congestive) heart failure (principal); I77.89 Other specified disorders of arteries and arterioles
CPT/HCPCS: 93010; 99214; G2211

== ENCOUNTER → 2024-04-28 09:38 | Outpatient (BNVA) | payer OTHER, SELFPAY | PROVIDERS: PCP Nurse Practitioner Primary Care; Visit Provider Internal Medicine | DX: I50.32 Chronic diastolic (congestive) heart failure (principal); I77.89 Other specified disorders of arteries and arterioles | CPT/HCPCS: 93005; 99212 ==